=== PATIENT | female | born 1965 | race Hispanic/Latino ===

== ENCOUNTER 2024-10-28 16:27 | Inpatient (IN) | payer SELFPAY ==
--- NOTE | ~2024-10-28 | CT_ITS ---
CT abdomen pelvis w con Ordering provider: Candelario Doe MD History: 58 years Female with . RLQ pain . Comparison: None. Technique: CT abdomen and pelvis with IV and without oral contrast. Automated exposure control and it erative reconstruction technique were employed. The dose-length product was 403.50 mGy-cm. 100 mL Omn ipaque 350 was given IV. Findings: VISUALIZED LOWER CHEST: Dependent atelectatic changes. Slight cardiomegaly. UPPER ABDOMINAL ORGANS: Liver: Intrahepatic biliary dilatation. Slight dilatation of the CBD measuring 6.3 mm. Tiny cyst seen in the right lobe of the liver segment #5. Gallbladder: Status post cholecystectomy. Spleen: Normal. Stomach/duodenum: Normal. Pancreas: Normal. Slightly prominent pancreatic duct. Adrenals: Normal. Kidneys: Tiny cyst in the left kidney mid pole. PELVIC ORGANS: The bladder is underfilled. Uterus: Normal. BOWEL AND MESENTERY: Colon: No evidence of diverticulitis. Colon is loaded with fecal material. Normal appendix. Small Bowel: Normal. No obstruction. Peritoneum/mesentery: No free air or free fluid. No mesenteric lymphadenopathy. RETROPERITONEUM: Mild atheromatous disease of the abdominal aorta. No retroperitoneal lymphadenopat hy. MUSCULOSKELETAL: Superficial soft tissues: Small fat-containing umbilical hernia. Otherwise, The superficial soft tiss ues are normal. Bones: Age appropriate degenerative changes of the spine. bilateral sacroiliitis. IMPRESSION: 1. Intrahepatic biliary dilatation with a slightly prominent pancreatic duct. Evaluation of the sphi ncter of Oddi is advised. 2. Constipation. Reviewed, dictated and finalized at location A. IMPRESSION: 1. Intrahepatic biliary dilatation with a slightly prominent pancreatic duct. Evaluation of the sphincter of Oddi is advised. 2. Constipation.
--- NOTE | ~2024-10-28 | MR_ITS ---
EXAMINATION: MR MRCP wo/w con/w 3D wo ind DATE: 10/30/2024 08:55 INDICATION: Suspected sphincter of Perry dysfunction TECHNIQUE: Magnetic resonance imaging (MRI) of the abdomen was performed without and with 14 mL Multi kevin intravenous contrast. Sequences included coronal T2-weighted SS-FSE, coronal T2-weighted FS SS- FSE, coronal T2-weighted FS FIESTA, axial T2-weighted FS FIESTA, axial T2-weighted FIESTA, sagittal T 2-weighted SS-FSE, axial T1-weighted dual-echo FSPGR, axial T2-weighted SS-FSE, axial T1-weighted LAV A, axial T2-weighted STIR FSE. Thick-slab T2-weighted FRFSE-XL images were obtained for magnetic reso nance cholangiopancreatography (MRCP). Rotating maximum intensity projection 3-D reconstructions of t he volumetric data were created by the technologist. Postcontrast sequences included a time course of axial T1-weighted LAVA. COMPARISON: CT dated 10/28/2024 FINDINGS: ABDOMEN MRI: Heart size is normal. No pericardial or pleural effusion. Cholecystectomy clip at the gallbladder fos sa at the tip of the remaining cystic duct. There is mild central intrahepatic biliary ductal dilatio n. Spleen, pancreas, bilateral adrenal glands and right kidney are normal. 4 mm T2 hyperintense nonen hancing cyst at the mid left kidney. Bowels including the appendix are normal. No pathologically enla rged abdominal or upper pelvic lymphadenopathy. Mild lumbar and mid to lower thoracic spondylosis. ABDOMEN MRCP: The common hepatic duct is dilated to 12 mm tapering to a mildly dilated common bile duct measuring 8 mm in maximal diameter. There is a 7 mm low signal intensity stone at the distal common bile duct. T he main pancreatic duct is normal. IMPRESSION: 1. Choledocholithiasis with likely at least partially obstructing 8 mm stone in the distal common ricardo e duct with mild intra and extra hepatic biliary ductal dilation. Reviewed, dictated and finalized at location A. IMPRESSION: 1. Choledocholithiasis with likely at least partially obstructing 8 mm stone in the distal common bile duct with mild intra and extra hepatic biliary ductal d ilation.
--- NOTE | ~2024-10-28 | XR_ITS ---
INTRAOPERATIVE FLUOROSCOPY: CLINICAL HISTORY: 58 years old Female; GALLSTONES STENT PLACEMENT ONLY PROCEDURE COMMENTS: Limited intraoperative fluoroscopy of the abdomen was performed. CUMULATIVE DOSE: 24 mGy FLUOROSCOPY TIME: 113 seconds FINDINGS/IMPRESSION: Please refer to operative note for further details. Reviewed, dictated and finalized at location A.
--- NOTE | 2024-10-28 16:36 | ECG_ITS ---
Test Date: 2024-10-28 16:43:30 Measurements Intervals [place] Rate: 64 P: -9 RI: 150 QRS: 74 QRSD: 85 T: 39 QT: 402 QTc: 416 Interpretive Statements SINUS RHYTHM No previous ECG available for comparison Electronically Signed On 10-28-2024 20:50:27 CDT by Daniel Giron M.D.
[2024-10-28 16:38] VITALS: BP 119/91; PULSE 65; RESP 14; O2SAT 100
[2024-10-28 16:52] LABS: Basophils Percent Auto 0.4 % (0.2-1.2); Eosinophils Absolute Auto 0.1 K/mm3 (0-0.3); Eosinophils Percent Auto 1.6 % (0-4.4); Hematocrit 37.8 % (37.0-47.0); Hemoglobin 13.1 g/dL (12.0-15.0); Immature Granulocyte Absolute 0.03 K/mm3 (0.00-0.031); Immature Granulocyte Percent A 0.4 % (0-0.5); Lymphocytes Absolute Auto 1.79 K/mm3 (0.9-3.2); Lymphocytes Percent Auto 21.9 % (18.3-44.2); Mean Corpuscular HGB Conc 34.7 g/dl (32-36); Mean Corpuscular Hemoglobin 29.9 pg (26-34); Mean Corpuscular Volume 86.3 fl (80-100); Mean Platelet Volume 8.7 fl (7.4-10.4); Monocytes Absolute Auto 0.4 K/mm3 (0.1-0.6); Monocytes Percent Auto 5.4 % (2.6-8.5); Neutrophils Absolute Auto 5.8 K/mm3 (1.3-6.7); Neutrophils Percent Auto 70.3 % (45.5-73.1); Platelet Count Result 196 k/mm3 (150-375); Red Blood Count 4.38 M/mm3 (4.2-5.4); Red Cell Distribution Width 12.8 % (11.5-14.5); White Blood Count 8.2 K/mm3 (4.5-10.0)
[2024-10-28 17:01] LABS: Alanine Aminotransferase 56 U/L (6-35); Albumin Level 4.5 g/dL (3.5-5.1); Alkaline Phosphatase 116 U/L (38-126); Anion Gap 8 mmol/L (4-12); Aspartate Amino Transferase 129 U/L (14-36); Bilirubin,Total 1.3 mg/dL (0.2-1.3); Blood Urea Nitrogen 19 mg/dL (7-17); Calcium 9.2 mg/dL (8.4-10.2); Carbon Dioxide 26 mmol/L (22-30); Chloride 106 mmol/L (98-107); Estimated CRCL calculation 64 ml/min; Estimated Glomerular Filt Rate > 60; Glucose 131 mg/dL (65-110); Lipase 187 U/L (23-300); Potassium 3.5 mmol/L (3.4-5.0); Sodium 140 mmol/L (137-145)
[2024-10-28] MEDS: LACTATED RINGERS 1,000 ML 999 ML IV CONT (17:07)
[2024-10-28] MEDS: HYDROmorphone HCL INJ (*CRX) 2 MG/ML VIAL 0.5 MG IV PUSH (17:07)
[2024-10-28] MEDS: ONDANSETRON INJ 4 MG/2 ML VIAL IV PUSH ×2 (17:07→21:56)
--- NOTE | 2024-10-28 17:16 | ED_ITS ---
HPI - General Adult General Chief complaint: Abdominal Pain Stated complaint: abd pain Time Seen by Provider: 10/28/24 16:42 History of Present Illness HPI narrative: 58-year-old female presenting to the emergency department for evaluation for epigastric and right lower quadrant abdominal pain that has been ongoing for the approximately last hour. Patient does have associated nausea and vomiting. Patient does have prior history of cholecystectomy. Patient denies any prior history of kidney stones. Patient's family is present and a translation service was utilized since the patient is primarily Japanese-speaking. Related Data Allergies Allergy/AdvReac Type Severity Reaction Status Date / Time No Known Allergies Allergy Verified 10/28/24 16:31 Review of Systems 2 Review of Systems: All systems reviewed & are unremarkable except as noted in HPI and below Exam 2 Narrative: APPEARANCE: Uncomfortable appearing HEAD: normocephalic, atraumatic. EYES: PERRLA/EOMI, conjunctivae clear. NOSE: Normal no drainage EARS:TMS clear with good light reflex. THROAT: Pharynx clear, no exudate. NECK: Supple. No adenopathy, no masses. RESPIRATORY: Airway patent, respirations nonlabored. Clear to auscultation bilaterally, no rales, rhonchi, wheezing. CARDIOVASCULAR: Regular rate and rhythm without murmurs rubs or gallops. ABDOMINAL: Epigastric and right lower quadrant tenderness to palpation MUSCULOSKELETAL: Moves all extremities. Strength/ROM intact, No edema, No calf tenderness. NEURO: Alert. Cranial nerves II through XII intact. Good gait. Good coordination SKIN: Warm, dry. Normal Color Course Vital Signs Vital signs: Vital Signs Pulse Rate 65 10/28/24 16:38 Respiratory Rate 14 10/28/24 16:38 Blood Pressure 119/91 H 10/28/24 16:38 Pulse Oximetry 100 10/28/24 16:38 Pulse Rate 72 10/28/24 18:41 Respiratory Rate 12 10/28/24 18:41 Blood Pressure 125/62 10/28/24 18:41 Pulse Oximetry 100 10/28/24 18:41 Medical Decision Making [facility] Narrative Medical decision making narrative: 58-year-old female presenting to the emergency department for evaluation for upper abdominal pain after eating. Patient is afebrile with no leukocytosis and hemoglobin of 13.1. Patient's INR is 1.0. Patient has an AST of 129 ALT of 56 with no elevation of alk-phos or T bili, patient's lipase is 187. No significant abnormalities on the UA. CT scan does show some intrahepatic biliary dilation and recommended evaluation of the sphincter of OD. GI was consulted and patient will be admitted for an MRCP. If the MRCP is positive then patient will be taken for an ERCP. MRCP is negative the in is anticipated that the patient will be transferred for an ultrasound. Case was discussed with hospitalist patient was accepted for admission. Patient improvement of her pain with 0.5 mg of IV Dilaudid, 4 mg of Zofran and a L of lactated Ringer's. Differential Diagnosis Differential Diagnosis: Pancreatitis, obtain stone, sphincter of Oddi dysfunction, colitis, diverticulitis, appendicitis Vital Signs Vital Signs: Vital Signs Pulse Rate 65 10/28/24 16:38 Respiratory Rate 14 10/28/24 16:38 Blood Pressure 119/91 H 10/28/24 16:38 Pulse Oximetry 100 10/28/24 16:38 Pulse Rate 72 10/28/24 18:41 Respiratory Rate 12 10/28/24 18:41 Blood Pressure 125/62 10/28/24 18:41 Pulse Oximetry 100 10/28/24 18:41 Lab Data 10/28/24 16:47 10/28/24 16:47 Labs: Lab Results 10/28/24 10/28/24 10/28/24 Range/Units 16:36 16:47 16:47 WBC 8.2 Cancelled (4.5-10.0) K/mm3 RBC 4.38 (4.2-5.4) M/mm3 Hgb (12.0-15.0) g/dL Hct (37.0-47.0) % MCV (80-100) fl MCH (26-34) pg MCHC (32-36) g/dl RDW (11.5-14.5) % Plt Count (150-375) k/mm3 MPV (7.4-10.4) fl Immature Gran % (Auto) (0-0.5) % Neut % (Auto) (45.5-73.1) % Lymph % (Auto) (18.3-44.2) % Hardeman % (Auto) (2.6-8.5) % Eos % (Auto) (0-4.4) % Baso % (Auto) (0.2-1.2) % Lymph # (Auto) (0.9-3.2) K/mm3 Hardeman # (Auto) (0.1-0.6) K/mm3 Eos # (Auto) (0-0.3) K/mm3 Baso # (Auto) (0.0-0.1) K/mm3 Abs Immat Gran (auto) (0.00-0.031) K/mm3 Absolute Neuts (auto) (1.3-6.7) K/mm3 Absolute Nucleated RBC (0.0-0.012) K/mm3 Nucleated RBC % (0.0-0.2) % % Immature Plt Fraction PT (11.1-14.7) Seconds INR APTT (22.3-36.8) Seconds Sodium (137-145) mmol/L Potassium (3.4-5.0) mmol/L Chloride (98-107) mmol/L Carbon Dioxide (22-30) mmol/L Anion Gap (4-12) mmol/L BUN (7-17) mg/dL Creatinine (0.7-1.0) mg/dL Estim Creat Clear Calc ml/min Estimated GFR (59 - ) Glucose (65-110) mg/dL Lactic Acid (0.7-2.0) mmol/L Calcium (8.4-10.2) mg/dL Total Bilirubin (0.2-1.3) mg/dL AST (14-36) U/L ALT (6-35) U/L Alkaline Phosphatase (38-126) U/L Total Protein (6.3-8.2) g/dL Albumin (3.5-5.1) g/dL Lipase (23-300) U/L Urine Color (Yellow) Urine Appearance (Clear) Urine pH (5.0-9.0) Ur Specific [place] (1.001-1.035) Urine Protein (Negative) mg/dL Urine Glucose (UA) (Negative) mg/dL Urine Ketones (Negative) mg/dL Ur Blood (Man) (Negative) Urine Nitrate (Negative) Urine Bilirubin (Negative) Urine Urobilinogen (<2.0) mg/dL Add Ur Microanalysis Leukocyte Esterase Rfl (Negative) WATSON/UL Urine RBC (0-2) /hpf Urine WBC (0-3) /hpf Ur Squamous Epith Cells (Few) /hpf Urine Bacteria /hpf Urine Casts POC Urine HCG, Qual Negative (Negative) 10/28/24 10/28/24 10/28/24 Range/Units 16:47 16:47 16:47 WBC (4.5-10.0) K/mm3 RBC Cancelled (4.2-5.4) M/mm3 Hgb 13.1 Cancelled (12.0-15.0) g/dL Hct 37.8 Cancelled (37.0-47.0) % MCV 86.3 (80-100) fl MCH (26-34) pg MCHC (32-36) g/dl RDW (11.5-14.5) % Plt Count (150-375) k/mm3 MPV (7.4-10.4) fl Immature Gran % (Auto) (0-0.5) % Neut % (Auto) (45.5-73.1) % Lymph % (Auto) (18.3-44.2) % Hardeman % (Auto) (2.6-8.5) % Eos % (Auto) (0-4.4) % Baso % (Auto) (0.2-1.2) % Lymph # (Auto) (0.9-3.2) K/mm3 Hardeman # (Auto) (0.1-0.6) K/mm3 Eos # (Auto) (0-0.3) K/mm3 Baso # (Auto) (0.0-0.1) K/mm3 Abs Immat Gran (auto) (0.00-0.031) K/mm3 Absolute Neuts (auto) (1.3-6.7) K/mm3 Absolute Nucleated RBC (0.0-0.012) K/mm3 Nucleated RBC % (0.0-0.2) % % Immature Plt Fraction PT (11.1-14.7) Seconds INR APTT (22.3-36.8) Seconds Sodium (137-145) mmol/L Potassium (3.4-5.0) mmol/L Chloride (98-107) mmol/L Carbon Dioxide (22-30) mmol/L Anion Gap (4-12) mmol/L BUN (7-17) mg/dL Creatinine (0.7-1.0) mg/dL Estim Creat Clear Calc ml/min Estimated GFR (59 - ) Glucose (65-110) mg/dL Lactic Acid (0.7-2.0) mmol/L Calcium (8.4-10.2) mg/dL Total Bilirubin (0.2-1.3) mg/dL AST (14-36) U/L ALT (6-35) U/L Alkaline Phosphatase (38-126) U/L Total Protein (6.3-8.2) g/dL Albumin (3.5-5.1) g/dL Lipase (23-300) U/L Urine Color (Yellow) Urine Appearance (Clear) Urine pH (5.0-9.0) Ur Specific [place] (1.001-1.035) Urine Protein (Negative) mg/dL Urine Glucose (UA) (Negative) mg/dL Urine Ketones (Negative) mg/dL Ur Blood (Man) (Negative) Urine Nitrate (Negative) Urine Bilirubin (Negative) Urine Urobilinogen (<2.0) mg/dL Add Ur Microanalysis Leukocyte Esterase Rfl (Negative) WATSON/UL Urine RBC (0-2) /hpf Urine WBC (0-3) /hpf Ur Squamous Epith Cells (Few) /hpf Urine Bacteria /hpf Urine Casts POC Urine HCG, Qual (Negative) 10/28/24 10/28/24 10/28/24 Range/Units 16:47 16:47 16:47 WBC (4.5-10.0) K/mm3 RBC (4.2-5.4) M/mm3 Hgb (12.0-15.0) g/dL Hct (37.0-47.0) % MCV Cancelled (80-100) fl MCH 29.9 Cancelled (26-34) pg MCHC 34.7 Cancelled (32-36) g/dl RDW 12.8 (11.5-14.5) % Plt Count (150-375) k/mm3 MPV (7.4-10.4) fl Immature Gran % (Auto) (0-0.5) % Neut % (Auto) (45.5-73.1) % Lymph % (Auto) (18.3-44.2) % Hardeman % (Auto) (2.6-8.5) % Eos % (Auto) (0-4.4) % Baso % (Auto) (0.2-1.2) % Lymph # (Auto) (0.9-3.2) K/mm3 [place] # (Auto) (0.1-0.6) K/mm3 Eos # (Auto) (0-0.3) K/mm3 Baso # (Auto) (0.0-0.1) K/mm3 Abs Immat Gran (auto) (0.00-0.031) K/mm3 Absolute Neuts (auto) (1.3-6.7) K/mm3 Absolute Nucleated RBC (0.0-0.012) K/mm3 Nucleated RBC % (0.0-0.2) % % Immature Plt Fraction PT (11.1-14.7) Seconds INR APTT (22.3-36.8) Seconds Sodium (137-145) mmol/L Potassium (3.4-5.0) mmol/L Chloride (98-107) mmol/L Carbon Dioxide (22-30) mmol/L Anion Gap (4-12) mmol/L BUN (7-17) mg/dL Creatinine (0.7-1.0) mg/dL Estim Creat Clear Calc ml/min Estimated GFR (59 - ) Glucose (65-110) mg/dL Lactic Acid (0.7-2.0) mmol/L Calcium (8.4-10.2) mg/dL Total Bilirubin (0.2-1.3) mg/dL AST (14-36) U/L ALT (6-35) U/L Alkaline Phosphatase (38-126) U/L Total Protein (6.3-8.2) g/dL Albumin (3.5-5.1) g/dL Lipase (23-300) U/L Urine Color (Yellow) Urine Appearance (Clear) Urine pH (5.0-9.0) Ur Specific [place] (1.001-1.035) Urine Protein (Negative) mg/dL Urine Glucose (UA) (Negative) mg/dL Urine Ketones (Negative) mg/dL Ur Blood (Man) (Negative) Urine Nitrate (Negative) Urine Bilirubin (Negative) Urine Urobilinogen (<2.0) mg/dL Add Ur Microanalysis Leukocyte Esterase Rfl (Negative) WATSON/UL Urine RBC (0-2) /hpf Urine WBC (0-3) /hpf Ur Squamous Epith Cells (Few) /hpf Urine Bacteria /hpf Urine Casts POC Urine HCG, Qual (Negative) 10/28/24 10/28/24 10/28/24 Range/Units 16:47 16:47 16:47 WBC (4.5-10.0) K/mm3 RBC (4.2-5.4) M/mm3 Hgb (12.0-15.0) g/dL Hct (37.0-47.0) % MCV (80-100) fl MCH (26-34) pg MCHC (32-36) g/dl RDW Cancelled (11.5-14.5) % Plt Count 196 Cancelled (150-375) k/mm3 MPV 8.7 Cancelled (7.4-10.4) fl Immature Gran % (Auto) 0.4 (0-0.5) % Neut % (Auto) (45.5-73.1) % Lymph % (Auto) (18.3-44.2) % [place] % (Auto) (2.6-8.5) % Eos % (Auto) (0-4.4) % Baso % (Auto) (0.2-1.2) % Lymph # (Auto) (0.9-3.2) K/mm3 [place] # (Auto) (0.1-0.6) K/mm3 Eos # (Auto) (0-0.3) K/mm3 Baso # (Auto) (0.0-0.1) K/mm3 Abs Immat Gran (auto) (0.00-0.031) K/mm3 Absolute Neuts (auto) (1.3-6.7) K/mm3 Absolute Nucleated RBC (0.0-0.012) K/mm3 Nucleated RBC % (0.0-0.2) % % Immature Plt Fraction PT (11.1-14.7) Seconds INR APTT (22.3-36.8) Seconds Sodium (137-145) mmol/L Potassium (3.4-5.0) mmol/L Chloride (98-107) mmol/L Carbon Dioxide (22-30) mmol/L Anion Gap (4-12) mmol/L BUN (7-17) mg/dL Creatinine (0.7-1.0) mg/dL Estim Creat Clear Calc ml/min Estimated GFR (59 - ) Glucose (65-110) mg/dL Lactic Acid (0.7-2.0) mmol/L Calcium (8.4-10.2) mg/dL Total Bilirubin (0.2-1.3) mg/dL AST (14-36) U/L ALT (6-35) U/L Alkaline Phosphatase (38-126) U/L Total Protein (6.3-8.2) g/dL Albumin (3.5-5.1) g/dL Lipase (23-300) U/L Urine Color (Yellow) Urine Appearance (Clear) Urine pH (5.0-9.0) Ur Specific [place] (1.001-1.035) Urine Protein (Negative) mg/dL Urine Glucose (UA) (Negative) mg/dL Urine Ketones (Negative) mg/dL Ur Blood (Man) (Negative) Urine Nitrate (Negative) Urine Bilirubin (Negative) Urine Urobilinogen (<2.0) mg/dL Add Ur Microanalysis Leukocyte Esterase Rfl (Negative) WATSON/UL Urine RBC (0-2) /hpf Urine WBC (0-3) /hpf Ur Squamous Epith Cells (Few) /hpf Urine Bacteria /hpf Urine Casts POC Urine HCG, Qual (Negative) 10/28/24 10/28/24 10/28/24 Range/Units 16:47 16:47 16:47 WBC (4.5-10.0) K/mm3 RBC (4.2-5.4) M/mm3 Hgb (12.0-15.0) g/dL Hct (37.0-47.0) % MCV (80-100) fl MCH (26-34) pg MCHC (32-36) g/dl RDW (11.5-14.5) % Plt Count (150-375) k/mm3 MPV (7.4-10.4) fl Immature Gran % (Auto) Cancelled (0-0.5) % Neut % (Auto) 70.3 Cancelled (45.5-73.1) % Lymph % (Auto) 21.9 Cancelled (18.3-44.2) % [place] % (Auto) 5.4 (2.6-8.5) % Eos % (Auto) (0-4.4) % Baso % (Auto) (0.2-1.2) % Lymph # (Auto) (0.9-3.2) K/mm3 [place] # (Auto) (0.1-0.6) K/mm3 Eos # (Auto) (0-0.3) K/mm3 Baso # (Auto) (0.0-0.1) K/mm3 Abs Immat Gran (auto) (0.00-0.031) K/mm3 Absolute Neuts (auto) (1.3-6.7) K/mm3 Absolute Nucleated RBC (0.0-0.012) K/mm3 Nucleated RBC % (0.0-0.2) % % Immature Plt Fraction PT (11.1-14.7) Seconds INR APTT (22.3-36.8) Seconds Sodium (137-145) mmol/L Potassium (3.4-5.0) mmol/L Chloride (98-107) mmol/L Carbon Dioxide (22-30) mmol/L Anion Gap (4-12) mmol/L BUN (7-17) mg/dL Creatinine (0.7-1.0) mg/dL Estim Creat Clear Calc ml/min Estimated GFR (59 - ) Glucose (65-110) mg/dL Lactic Acid (0.7-2.0) mmol/L Calcium (8.4-10.2) mg/dL Total Bilirubin (0.2-1.3) mg/dL AST (14-36) U/L ALT (6-35) U/L Alkaline Phosphatase (38-126) U/L Total Protein (6.3-8.2) g/dL Albumin (3.5-5.1) g/dL Lipase (23-300) U/L Urine Color (Yellow) Urine Appearance (Clear) Urine pH (5.0-9.0) Ur Specific [place] (1.001-1.035) Urine Protein (Negative) mg/dL Urine Glucose (UA) (Negative) mg/dL Urine Ketones (Negative) mg/dL Ur Blood (Man) (Negative) Urine Nitrate (Negative) Urine Bilirubin (Negative) Urine Urobilinogen (<2.0) mg/dL Add Ur Microanalysis Leukocyte Esterase Rfl (Negative) WATSON/UL Urine RBC (0-2) /hpf Urine WBC (0-3) /hpf Ur Squamous Epith Cells (Few) /hpf Urine Bacteria /hpf Urine Casts POC Urine HCG, Qual (Negative) 10/28/24 10/28/24 10/28/24 Range/Units 16:47 16:47 16:47 WBC (4.5-10.0) K/mm3 RBC (4.2-5.4) M/mm3 Hgb (12.0-15.0) g/dL Hct (37.0-47.0) % MCV (80-100) fl MCH (26-34) pg MCHC (32-36) g/dl RDW (11.5-14.5) % Plt Count (150-375) k/mm3 MPV (7.4-10.4) fl Immature Gran % (Auto) (0-0.5) % Neut % (Auto) (45.5-73.1) % Lymph % (Auto) (18.3-44.2) % [place]eman % (Auto) Cancelled (2.6-8.5) % Eos % (Auto) 1.6 Cancelled (0-4.4) % Baso % (Auto) 0.4 Cancelled (0.2-1.2) % Lymph # (Auto) 1.79 (0.9-3.2) K/mm3 [place]eman # (Auto) (0.1-0.6) K/mm3 Eos # (Auto) (0-0.3) K/mm3 Baso # (Auto) (0.0-0.1) K/mm3 Abs Immat Gran (auto) (0.00-0.031) K/mm3 Absolute Neuts (auto) (1.3-6.7) K/mm3 Absolute Nucleated RBC (0.0-0.012) K/mm3 Nucleated RBC % (0.0-0.2) % % Immature Plt Fraction PT (11.1-14.7) Seconds INR APTT (22.3-36.8) Seconds Sodium (137-145) mmol/L Potassium (3.4-5.0) mmol/L Chloride (98-107) mmol/L Carbon Dioxide (22-30) mmol/L Anion Gap (4-12) mmol/L BUN (7-17) mg/dL Creatinine (0.7-1.0) mg/dL Estim Creat Clear Calc ml/min Estimated GFR (59 - ) Glucose (65-110) mg/dL Lactic Acid (0.7-2.0) mmol/L Calcium (8.4-10.2) mg/dL Total Bilirubin (0.2-1.3) mg/dL AST (14-36) U/L ALT (6-35) U/L Alkaline Phosphatase (38-126) U/L Total Protein (6.3-8.2) g/dL Albumin (3.5-5.1) g/dL Lipase (23-300) U/L Urine Color (Yellow) Urine Appearance (Clear) Urine pH (5.0-9.0) Ur Specific [place] (1.001-1.035) Urine Protein (Negative) mg/dL Urine Glucose (UA) (Negative) mg/dL Urine Ketones (Negative) mg/dL Ur Blood (Man) (Negative) Urine Nitrate (Negative) Urine Bilirubin (Negative) Urine Urobilinogen (<2.0) mg/dL Add Ur Microanalysis Leukocyte Esterase Rfl (Negative) WATSON/UL Urine RBC (0-2) /hpf Urine WBC (0-3) /hpf Ur Squamous Epith Cells (Few) /hpf Urine Bacteria /hpf Urine Casts POC Urine HCG, Qual (Negative) 10/28/24 10/28/24 10/28/24 Range/Units 16:47 16:47 16:47 WBC (4.5-10.0) K/mm3 RBC (4.2-5.4) M/mm3 Hgb (12.0-15.0) g/dL Hct (37.0-47.0) % MCV (80-100) fl MCH (26-34) pg MCHC (32-36) g/dl RDW (11.5-14.5) % Plt Count (150-375) k/mm3 MPV (7.4-10.4) fl Immature Gran % (Auto) (0-0.5) % Neut % (Auto) (45.5-73.1) % Lymph % (Auto) (18.3-44.2) % [place]eman % (Auto) (2.6-8.5) % Eos % (Auto) (0-4.4) % Baso % (Auto) (0.2-1.2) % Lymph # (Auto) Cancelled (0.9-3.2) K/mm3 [place]eman # (Auto) 0.4 Cancelled (0.1-0.6) K/mm3 Eos # (Auto) 0.1 Cancelled (0-0.3) K/mm3 Baso # (Auto) 0.0 (0.0-0.1) K/mm3 Abs Immat Gran (auto) (0.00-0.031) K/mm3 Absolute Neuts (auto) (1.3-6.7) K/mm3 Absolute Nucleated RBC (0.0-0.012) K/mm3 Nucleated RBC % (0.0-0.2) % % Immature Plt Fraction PT (11.1-14.7) Seconds INR APTT (22.3-36.8) Seconds Sodium (137-145) mmol/L Potassium (3.4-5.0) mmol/L Chloride (98-107) mmol/L Carbon Dioxide (22-30) mmol/L Anion Gap (4-12) mmol/L BUN (7-17) mg/dL Creatinine (0.7-1.0) mg/dL Estim Creat Clear Calc ml/min Estimated GFR (59 - ) Glucose (65-110) mg/dL Lactic Acid (0.7-2.0) mmol/L Calcium (8.4-10.2) mg/dL Total Bilirubin (0.2-1.3) mg/dL AST (14-36) U/L ALT (6-35) U/L Alkaline Phosphatase (38-126) U/L Total Protein (6.3-8.2) g/dL Albumin (3.5-5.1) g/dL Lipase (23-300) U/L Urine Color (Yellow) Urine Appearance (Clear) Urine pH (5.0-9.0) Ur Specific [place] (1.001-1.035) Urine Protein (Negative) mg/dL Urine Glucose (UA) (Negative) mg/dL Urine Ketones (Negative) mg/dL Ur Blood (Man) (Negative) Urine Nitrate (Negative) Urine Bilirubin (Negative) Urine Urobilinogen (<2.0) mg/dL Add Ur Microanalysis Leukocyte Esterase Rfl (Negative) WATSON/UL Urine RBC (0-2) /hpf Urine WBC (0-3) /hpf Ur Squamous Epith Cells (Few) /hpf Urine Bacteria /hpf Urine Casts POC Urine HCG, Qual (Negative) 10/28/24 10/28/24 10/28/24 Range/Units 16:47 16:47 16:47 WBC (4.5-10.0) K/mm3 RBC (4.2-5.4) M/mm3 Hgb (12.0-15.0) g/dL Hct (37.0-47.0) % MCV (80-100) fl MCH (26-34) pg MCHC (32-36) g/dl RDW (11.5-14.5) % Plt Count (150-375) k/mm3 MPV (7.4-10.4) fl Immature Gran % (Auto) (0-0.5) % Neut % (Auto) (45.5-73.1) % Lymph % (Auto) (18.3-44.2) % Hardeman % (Auto) (2.6-8.5) % Eos % (Auto) (0-4.4) % Baso % (Auto) (0.2-1.2) % Lymph # (Auto) (0.9-3.2) K/mm3 [place]eman # (Auto) (0.1-0.6) K/mm3 Eos # (Auto) (0-0.3) K/mm3 Baso # (Auto) Cancelled (0.0-0.1) K/mm3 Abs Immat Gran (auto) 0.03 Cancelled (0.00-0.031) K/mm3 Absolute Neuts (auto) 5.8 Cancelled (1.3-6.7) K/mm3 Absolute Nucleated RBC 0.000 (0.0-0.012) K/mm3 Nucleated RBC % (0.0-0.2) % % Immature Plt Fraction PT (11.1-14.7) Seconds INR APTT (22.3-36.8) Seconds Sodium (137-145) mmol/L Potassium (3.4-5.0) mmol/L Chloride (98-107) mmol/L Carbon Dioxide (22-30) mmol/L Anion Gap (4-12) mmol/L BUN (7-17) mg/dL Creatinine (0.7-1.0) mg/dL Estim Creat Clear Calc ml/min Estimated GFR (59 - ) Glucose (65-110) mg/dL Lactic Acid (0.7-2.0) mmol/L Calcium (8.4-10.2) mg/dL Total Bilirubin (0.2-1.3) mg/dL AST (14-36) U/L ALT (6-35) U/L Alkaline Phosphatase (38-126) U/L Total Protein (6.3-8.2) g/dL Albumin (3.5-5.1) g/dL Lipase (23-300) U/L Urine Color (Yellow) Urine Appearance (Clear) Urine pH (5.0-9.0) Ur Specific [place] (1.001-1.035) Urine Protein (Negative) mg/dL Urine Glucose (UA) (Negative) mg/dL Urine Ketones (Negative) mg/dL Ur Blood (Man) (Negative) Urine Nitrate (Negative) Urine Bilirubin (Negative) Urine Urobilinogen (<2.0) mg/dL Add Ur Microanalysis Leukocyte Esterase Rfl (Negative) WATSON/UL Urine RBC (0-2) /hpf Urine WBC (0-3) /hpf Ur Squamous Epith Cells (Few) /hpf Urine Bacteria /hpf Urine Casts POC Urine HCG, Qual (Negative) 10/28/24 10/28/24 10/28/24 Range/Units 16:47 16:47 17:02 WBC (4.5-10.0) K/mm3 RBC (4.2-5.4) M/mm3 Hgb (12.0-15.0) g/dL Hct (37.0-47.0) % MCV (80-100) fl MCH (26-34) pg MCHC (32-36) g/dl RDW (11.5-14.5) % Plt Count (150-375) k/mm3 MPV (7.4-10.4) fl Immature Gran % (Auto) (0-0.5) % Neut % (Auto) (45.5-73.1) % Lymph % (Auto) (18.3-44.2) % Hardeman % (Auto) (2.6-8.5) % Eos % (Auto) (0-4.4) % Baso % (Auto) (0.2-1.2) % Lymph # (Auto) (0.9-3.2) K/mm3 [place]eman # (Auto) (0.1-0.6) K/mm3 Eos # (Auto) (0-0.3) K/mm3 Baso # (Auto) (0.0-0.1) K/mm3 Abs Immat Gran (auto) (0.00-0.031) K/mm3 Absolute Neuts (auto) (1.3-6.7) K/mm3 Absolute Nucleated RBC Cancelled (0.0-0.012) K/mm3 Nucleated RBC % 0.0 Cancelled (0.0-0.2) % % Immature Plt Fraction Cancelled PT 13.6 (11.1-14.7) Seconds INR 1.0 APTT 28.1 (22.3-36.8) Seconds Sodium 140 (137-145) mmol/L Potassium 3.5 (3.4-5.0) mmol/L Chloride 106 (98-107) mmol/L Carbon Dioxide 26 (22-30) mmol/L Anion Gap 8 (4-12) mmol/L BUN 19 H (7-17) mg/dL Creatinine 0.72 (0.7-1.0) mg/dL Estim Creat Clear Calc 64 ml/min Estimated GFR > 60 (59 - ) Glucose 131 H (65-110) mg/dL Lactic Acid (0.7-2.0) mmol/L Calcium 9.2 (8.4-10.2) mg/dL Total Bilirubin 1.3 (0.2-1.3) mg/dL AST 129 H (14-36) U/L ALT 56 H (6-35) U/L Alkaline Phosphatase 116 (38-126) U/L Total Protein 8.0 (6.3-8.2) g/dL Albumin 4.5 (3.5-5.1) g/dL Lipase 187 (23-300) U/L Urine Color Yellow (Yellow) Urine Appearance Cloudy H (Clear) Urine pH 7.5 (5.0-9.0) Ur Specific [place] 1.019 (1.001-1.035) Urine Protein Trace (Negative) mg/dL Urine Glucose (UA) Negative (Negative) mg/dL Urine Ketones Negative (Negative) mg/dL Ur Blood (Man) Negative (Negative) Urine Nitrate Negative (Negative) Urine Bilirubin Negative (Negative) Urine Urobilinogen 2.0 H (<2.0) mg/dL Add Ur Microanalysis Reviewed Leukocyte Esterase Rfl 2+ H (Negative) WATSON/UL Urine RBC 0-2 (0-2) /hpf Urine WBC 0-5 (0-3) /hpf Ur Squamous Epith Cells Occasional (Few) /hpf Urine Bacteria None seen /hpf Urine Casts 0-2 POC Urine HCG, Qual (Negative) 10/28/ Range/Units 18:38 WBC (4.5-10.0) K/mm3 RBC (4.2-5.4) M/mm3 Hgb (12.0-15.0) g/dL Hct (37.0-47.0) % MCV (80-100) fl MCH (26-34) pg MCHC (32-36) g/dl RDW (11.5-14.5) % Plt Count (150-375) k/mm3 MPV (7.4-10.4) fl Immature Gran % (Auto) (0-0.5) % Neut % (Auto) (45.5-73.1) % Lymph % (Auto) (18.3-44.2) % Hardeman % (Auto) (2.6-8.5) % Eos % (Auto) (0-4.4) % Baso % (Auto) (0.2-1.2) % Lymph # (Auto) (0.9-3.2) K/mm3 Hardeman # (Auto) (0.1-0.6) K/mm3 Eos # (Auto) (0-0.3) K/mm3 Baso # (Auto) (0.0-0.1) K/mm3 Abs Immat Gran (auto) (0.00-0.031) K/mm3 Absolute Neuts (auto) (1.3-6.7) K/mm3 Absolute Nucleated RBC (0.0-0.012) K/mm3 Nucleated RBC % (0.0-0.2) % % Immature Plt Fraction PT (11.1-14.7) Seconds INR APTT (22.3-36.8) Seconds Sodium (137-145) mmol/L Potassium (3.4-5.0) mmol/L Chloride (98-107) mmol/L Carbon Dioxide (22-30) mmol/L Anion Gap (4-12) mmol/L BUN (7-17) mg/dL Creatinine (0.7-1.0) mg/dL Estim Creat Clear Calc ml/min Estimated GFR (59 - ) Glucose (65-110) mg/dL Lactic Acid 0.8 (0.7-2.0) mmol/L Calcium (8.4-10.2) mg/dL Total Bilirubin (0.2-1.3) mg/dL AST (14-36) U/L ALT (6-35) U/L Alkaline Phosphatase (38-126) U/L Total Protein (6.3-8.2) g/dL Albumin (3.5-5.1) g/dL Lipase (23-300) U/L Urine Color (Yellow) Urine Appearance (Clear) Urine pH (5.0-9.0) Ur Specific [place] (1.001-1.035) Urine Protein (Negative) mg/dL Urine Glucose (UA) (Negative) mg/dL Urine Ketones (Negative) mg/dL Ur Blood (Man) (Negative) Urine Nitrate (Negative) Urine Bilirubin (Negative) Urine Urobilinogen (<2.0) mg/dL Add Ur Microanalysis Leukocyte Esterase Rfl (Negative) WATSON/UL Urine RBC (0-2) /hpf Urine WBC (0-3) /hpf Ur Squamous Epith Cells (Few) /hpf Urine Bacteria /hpf Urine Casts POC Urine HCG, Qual (Negative) Discharge Plan Discharge Clinical Impression: Abdominal pain Patient Disposition: Still a Patient Condition: Stable Instructions: Antibiotic Form Patient Language: Armenian Follow-up/Referrals: PHYSICIAN,BENZENE [employer]ILL [employer] OPERATOR [Primary Care Provider] -
[2024-10-28 17:21] LABS: Add Urine Microscopic? YES; Appearance Urine Cloudy (Clear); Bacteria Urine None Seen /hpf; Bilirubin Urine Negative (Negative); Blood Urine Negative (Negative); Color Urine Yellow (Yellow); Glucose Urine UA Negative (Negative); Ketones Urine Negative (Negative); Leukocyte Esterase Ur 2+ LEU/UL (Negative); Need Manual Microscopic Reviewed; Nitrate Urine Negative (Negative); Non Pathogenic Casts 0-2; Protein Urine Trace mg/dL (Negative); RBC Urine 0-2 /hpf (0-2); Specific Grav Ur 1.019 (1.001-1.035); Squamous Epithelial Cell Urine Occasional /hpf (Few); WBC Urine 0-5 /hpf (0-3); pH Urine 7.5 (5.0-9.0)
[2024-10-28 17:21] LABS: Partial Thromboplastin Time 28.1 Seconds (22.3-36.8); Prothrombin Time 13.6 Seconds (11.1-14.7)
[2024-10-28 18:18] LABS: BEDSIDEPREGUCG Negative (Negative)
[2024-10-28 18:41] VITALS: BP 125/62; PULSE 72; RESP 12; O2SAT 100
[2024-10-28 18:56] LABS: Lactic Acid Reflex 0.8 mmol/L (0.7-2.0)
[2024-10-28] MEDS: LACTATED RINGERS 1,000 ML 125 ML IV CONT (19:12)
--- NOTE | 2024-10-28 19:35 | P.HP_ITS ---
H&P: HPI History of Present Illness Date/Time: 10/28/24 21:35 Chief Complaint: Abdominal pain. Narrative: This is a 58-year-old female with history of cholecystectomy who presented to the emergency department via private vehicle from home with complaints of abdominal pain. She is primarily [place]-speaking and a video translation service was used to obtain the following history. She felt fine when she got up this morning. For lunch she had pasta salad and macaroni and cheese and not long thereafter she developed nonradiating sharp pain in the epigastric region associated with nausea and vomiting x2. The symptoms were similar to though she experienced before she had her gallbladder taken out. With further questioning she reports that over the last 1 week she has had similar symptoms albeit to a lesser degree and she has been taking [id number] medication though she is unable to tell me the name of that medication. She denies fever, chills, sweats, hematemesis, bloating, belching, diarrhea, melena, hematochezia, provide S, and jaundice. In the ED: Vital signs were stable on arrival. Labs were significant for a WBC count of 8.2, total bilirubin 0.3, AST 129, ALT 56, alkaline phosphatase 116, lipase 187. CT of the abdomen and pelvis showed intrahepatic biliary dilatation with a slightly prominent peripancreatic duct and findings of constipation. She received a L of lactated Ringer's, hydromorphone 0.5 mg, and ondansetron 4 mg. She is being admitted in this setting for symptom management and GI consultation. Review of Systems Review of Systems: 12 systems were reviewed and are negativ e except for as per HPI. [facility] Surgical History Surgical History (Updated 10/28/24 @ 22:22 by Andreina Bonner PA-C) History of cholecystectomy Social History Social History (Updated 10/28/24 @ 22:23 by Andreina Bonner PA-C) Social History: Surrogate medical decision maker: Lior Miller, spouse. Code status: Full code. Smoking status: Never smoker Alcohol intake: never Meds Home Medications and Allergies Allergies Allergy/AdvReac Type Severity Reaction Status Date / Time No Known Allergies Allergy Verified 10/28/24 16:31 Vital Signs Vital Signs - 24 hr 10/28/24 16:38 10/28/24 18:41 Pulse Rate 65 72 Respiratory Rate 14 12 Blood Pressure 119/91 H 125/62 Pulse Oximetry 100 100 Exam Narrative: General: Nontoxic-appearing female supine in bed in no acute distress. Weight: 72 kg. BMI: 31.0. HEENT: PERRL, EOMI. Sclera anicteric. Oral mucosa moist. Neck: Supple. Respiratory: Lungs are clear to auscultation bilaterally. Cardiovascular: Regular rate and rhythm with S1-S2. Gastrointestinal: Abdomen is soft, nontender, and nondistended with positive bowel sounds. (she did receive pain medications not long prior to my examination) Skin: Warm and dry. No rash or lesions on limited exam. Extremities: No cyanosis, clubbing, or edema. Radial and pedal pulses intact. Neurological: Alert. Cranial nerves 2-12 are grossly intact. No gross focal deficits to casual conversation. Psychiatric: Pleasant and cooperative with normal mood and affect. Judgment and insight intact. H&P: Results Labs Labs: Short CBC 10/28/24 10/28/24 10/28/24 Range/Units 16:47 16:47 16:47 WBC 8.2 Cancelled (4.5-10.0) K/mm3 Hgb 13.1 Cancelled (12.0-15.0) g/dL Hct 37.8 (37.0-47.0) % Plt Count (150-375) k/mm3 10/28/24 10/28/24 Range/Units 16:47 16:47 WBC (4.5-10.0) K/mm3 Hgb (12.0-15.0) g/dL Hct Cancelled (37.0-47.0) % Plt Count 196 Cancelled (150-375) k/mm3 BMP 10/28/24 16:47 Sodium 140 Potassium 3.5 Chloride 106 Carbon Dioxide 26 BUN 19 H Creatinine 0.72 Glucose 131 H Calcium 9.2 Liver Function 10/28/24 Range/Units 16:47 Total Bilirubin 1.3 (0.2-1.3) mg/dL AST 129 H (14-36) U/L ALT 56 H (6-35) U/L Alkaline Phosphatase 116 (38-126) U/L Albumin 4.5 (3.5-5.1) g/dL Urine 10/28/24 Range/Units 17:02 Urine Color Yellow (Yellow) Urine Appearance Cloudy H (Clear) Urine pH 7.5 (5.0-9.0) Ur Specific Thurmond 1.019 (1.001-1.035) Urine Protein Trace (Negative) mg/dL Urine Glucose (UA) Negative (Negative) mg/dL Imaging Abdomen/Pelvis CT 10/28/24 18:07 IMPRESSION: 1. Intrahepatic biliary dilatation with a slightly prominent pancreatic duct. Evaluation of the sphincter of Oddi is advised. 2. Constipation. Assessment and Plan Assessment and plan (1) Intrahepatic bile duct dilation: Code(s): K83.8 - Other specified diseases of biliary tract Status: Acute (2) Pancreatic duct dilated: Code(s): K86.89 - Other specified diseases of pancreas Status: Acute (3) Epigastric pain: Code(s): R10.13 - Epigastric pain Status: Acute (4) Transaminitis: Code(s): R74.01 - Elevation of levels of liver transaminase levels Status: Acute Plan The patient presented to the emergency department for evaluation of upper abdominal pain, nausea, and vomiting which started approximately 1 hour prior to arrival as detailed in HPI. CT showed intrahepatic biliary dilatation and a slightly prominent peripancreatic duct and MRCP has been ordered for further evaluation. Total bilirubin and alkaline phosphatase are within normal limits though AST and ALT are a bit elevated. GI has been consulted for further recommendations. Vital signs were reviewed and they are stable. Findings and treatment plan were discussed with the patient. Questions were solicited and an swered to satisfaction. The patient's medical management will be taken over by the hospitalist team in a.m. Quality VTE Prophylaxis VTE prophylaxis: mechanical ordered If No VTE Prophylaxis Answer both mechanical and pharmacologic: Reason no pharmacologic proph: medical contraindication (hold for now as she may require procedure) The patient has been admitted under observation status. Hospitalist [facility] Advance Care Plan I have confirmed that the patient's Advanced Care Plan is present, code status is documented, or surrogate decision maker is listed in patient medical record.: Yes Medication Reconciliation I have utilized all available resources to obtain, update and review the patients current medications (includes all prescriptions, OTC, herbals, cannabis, and nutritional supplements).: Yes
[2024-10-28] MEDS: LACTATED RINGERS 1,000 ML 75 ML IV CONT (21:57)
[2024-10-29 05:29] VITALS: BP 112/56; PULSE 54; RESP 18; TEMP 36.6; O2SAT 98
[2024-10-29 06:07] LABS: Basophils Percent Auto 0.2 % (0.2-1.2); Eosinophils Absolute Auto 0.1 K/mm3 (0-0.3); Eosinophils Percent Auto 2.8 % (0-4.4); Hematocrit 34.3 % (37.0-47.0); Hemoglobin 11.6 g/dL (12.0-15.0); Lymphocytes Absolute Auto 1.19 K/mm3 (0.9-3.2); Lymphocytes Percent Auto 28.2 % (18.3-44.2); Mean Corpuscular HGB Conc 33.8 g/dl (32-36); Mean Corpuscular Volume 88.6 fl (80-100); Mean Platelet Volume 9.3 fl (7.4-10.4); Monocytes Absolute Auto 0.4 K/mm3 (0.1-0.6); Monocytes Percent Auto 8.8 % (2.6-8.5); Neutrophils Absolute Auto 2.5 K/mm3 (1.3-6.7); Platelet Count Result 152 k/mm3 (150-375); Red Blood Count 3.87 M/mm3 (4.2-5.4); White Blood Count 4.2 K/mm3 (4.5-10.0)
[2024-10-29 06:20] LABS: Alanine Aminotransferase 208 U/L (6-35); Albumin Level 3.7 g/dL (3.5-5.1); Alkaline Phosphatase 127 U/L (38-126); Anion Gap 2 mmol/L (4-12); Aspartate Amino Transferase 234 U/L (14-36); Bilirubin,Total 0.8 mg/dL (0.2-1.3); Blood Urea Nitrogen 9 mg/dL (7-17); Calcium 8.6 mg/dL (8.4-10.2); Carbon Dioxide 31 mmol/L (22-30); Chloride 108 mmol/L (98-107); Estimated CRCL calculation 66 ml/min; Estimated Glomerular Filt Rate > 60; Glucose 93 mg/dL (65-110); Magnesium 2.1 mg/dL (1.6-2.3); Potassium 3.9 mmol/L (3.4-5.0); Sodium 141 mmol/L (137-145)
--- NOTE | 2024-10-29 08:14 | P.PNIM_ITS ---
Progress Note: A&P Assessment and Plan (1) Intrahepatic bile duct dilation: Code(s): K83.8 - Other specified diseases of biliary tract Status: Acute Assessment and Plan: Hx Cholecystectomy Possibly multifactorial-retained stone versus narrowing of CBD/Sphincter of Oddi versus sludge MRCP Pending CT Abdomen/Pelvis:1. Intrahepatic biliary dilatation with a slightly prominent pancreatic duct. Evaluation of the sphincter of Oddi is advised. 2. Constipation. AST 234, ALT 208, alkaline phosphatase 127, lipase 187, total bili 0.8 Supportive care with pain control Antiemetics as needed NPO GI consulted and appreciate recommendations (2) Pancreatic duct dilated: Code(s): K86.89 - Other specified diseases of pancreas Status: Acute Assessment and Plan: As above (3) Epigastric pain: Code(s): R10.13 - Epigastric pain Status: Acute Assessment and Plan: As above (4) Transaminitis: Code(s): R74.01 - Elevation of levels of liver transaminase levels Status: Acute Assessment and Plan: As above Subjective Date/time seen: 10/29/24 08:14 Interval history: Patient is admitted in the setting of abdominal pain. Patient has a past medical history of cholecystectomy. CT scan shows intrahepatic bilaterally dil ation and slight prominent peripancreatic duct. MRCP is pending. Total bilirubin and alkaline phosphatase are within normal limits. AST and ALT elevated. Review of Systems Review of Systems: 12 systems were reviewed and are negativ e except for as per HPI. Exam Narrative: General: Nontoxic-appearing female supine in bed in no acute distress. Weight: 72 kg. BMI: 31.0. HEENT: PERRL, EOMI. Sclera anicteric. Oral mucosa moist. Neck: Supple. Respiratory: Lungs are clear to auscultation bilaterally. Cardiovascular: Regular rate and rhythm with S1-S2. Gastrointestinal: Abdomen is soft, nontender, and nondistended with positive bowel sounds. (she did receive pain medications not long prior to my examination) Skin: Warm and dry. No rash or lesions on limited exam. Extremities: No cyanosis, clubbing, or edema. Radial and pedal pulses intact. Neurological: Alert. Cranial nerves 2-12 are grossly intact. No gross focal deficits to casual conversation. Psychiatric: Pleasant and cooperative with normal mood and affect. Judgment and insight intact. Objective Data Vital Signs Vital Signs: Vital Signs - 24 hr 10/28/24 16:38 10/28/24 18:41 10/28/24 22:34 Temperature Pulse Rate 65 72 Respiratory Rate 14 12 Blood Pressure 119/91 H 125/62 Pulse Oximetry 100 100 Oxygen Delivery Room Air 10/29/24 05:29 Temperature 97.8 F Pulse Rate 54 L Respiratory Rate 18 Blood Pressure 112/56 L Pulse Oximetry 98 Oxygen Delivery Intake/Output Intake/Output: Intake & Output 10/26/24 10/27/24 10/28/24 10/29/24 23:59 23:59 23:59 23:59 Intake Total 1343.8 Balance 1343.8 Meds/Results Medications: Active Medications Generic Name Dose Route Start Last Admin Trade Name Freq PRN Reason Stop Dose Admin Hydromorphone HCl 0.5 mg 10/28/24 19:41 Hydromorphone Hcl Inj (*Crx) 2 Mg/Ml Vial IV PUSH Q3H PRN Pain Rated 7-10 Lactated Ringer's 1,000 mls @ 75 mls/hr 10/28/24 18:55 10/28/24 21:57 Lr - Lactated Ringers Iv IV CONT 75 mls/hr .[id number] RUCHI Administration Ondansetron HCl 4 mg 10/28/24 18:52 10/28/24 21:56 Ondansetron Inj 4 Mg/2 Ml Vial IV PUSH 4 mg Q4H PRN Administration Nausea Radiology Results: ITS Impressions Abdomen/Pelvis CT 10/28/24 18:07 IMPRESSION: 1. Intrahepatic biliary dilatation with a slightly prominent pancreatic duct. Evaluation of the sphincter of Oddi is advised. 2. Constipation. Labs Labs: Laboratory Results - last 24 hr 10/28/24 10/28/24 10/28/24 16:36 16:47 16:47 WBC 8.2 Cancelled RBC 4.38 Hgb Hct MCV MCH MCHC RDW Plt Count MPV Immature Gran % (Auto) Neut % (Auto) Lymph % (Auto) Tate % (Auto) Eos % (Auto) Baso % (Auto) Lymph # (Auto) Tate # (Auto) Eos # (Auto) Baso # (Auto) Abs Immat Gran (auto) Absolute Neuts (auto) Absolute Nucleated RBC Nucleated RBC % % Immature Plt Fraction PT INR APTT Sodium Potassium Chloride Carbon Dioxide Anion Gap BUN Creatinine Estim Creat Clear Calc Estimated GFR Glucose Lactic Acid Calcium Magnesium Total Bilirubin AST ALT Alkaline Phosphatase Total Protein Albumin Lipase Urine Color Urine Appearance Urine pH Ur Specific [place] Urine Protein Urine Glucose (UA) Urine Ketones Ur Blood (Man) Urine Nitrate Urine Bilirubin Urine Urobilinogen Add Ur Microanalysis Leukocyte Esterase Rfl Urine RBC Urine WBC Ur Squamous Epith Cells Urine Bacteria Urine Casts POC Urine HCG, Qual Negative 10/28/24 10/28/24 10/28/24 16:47 16:47 16:47 WBC RBC Cancelled Hgb 13.1 Cancelled Hct 37.8 Cancelled MCV 86.3 MCH MCHC RDW Plt Count MPV Immature Gran % (Auto) Neut % (Auto) Lymph % (Auto) Tate % (Auto) Eos % (Auto) Baso % (Auto) Lymph # (Auto) [place] # (Auto) Eos # (Auto) Baso # (Auto) Abs Immat Gran (auto) Absolute Neuts (auto) Absolute Nucleated RBC Nucleated RBC % % Immature Plt Fraction PT INR APTT Sodium Potassium Chloride Carbon Dioxide Anion Gap BUN Creatinine Estim Creat Clear Calc Estimated GFR Glucose Lactic Acid Calcium Magnesium Total Bilirubin AST ALT Alkaline Phosphatase Total Protein Albumin Lipase Urine Color Urine Appearance Urine pH Ur Specific [place] Urine Protein Urine Glucose (UA) Urine Ketones Ur Blood (Man) Urine Nitrate Urine Bilirubin Urine Urobilinogen Add Ur Microanalysis Leukocyte Esterase Rfl Urine RBC Urine WBC Ur Squamous Epith Cells Urine Bacteria Urine Casts POC Urine HCG, Qual 10/28/24 10/28/24 10/28/24 16:47 16:47 16:47 WBC RBC Hgb Hct MCV Cancelled MCH 29.9 Cancelled MCHC 34.7 Cancelled RDW 12.8 Plt Count MPV Immature Gran % (Auto) Neut % (Auto) Lymph % (Auto) Tate % (Auto) Eos % (Auto) Baso % (Auto) Lymph # (Auto) Tate # (Auto) Eos # (Auto) Baso # (Auto) Abs Immat Gran (auto) Absolute Neuts (auto) Absolute Nucleated RBC Nucleated RBC % % Immature Plt Fraction PT INR APTT Sodium Potassium Chloride Carbon Dioxide Anion Gap BUN Creatinine Estim Creat Clear Calc Estimated GFR Glucose Lactic Acid Calcium Magnesium Total Bilirubin AST ALT Alkaline Phosphatase Total Protein Albumin Lipase Urine Color Urine Appearance Urine pH Ur Specific [place] Urine Protein Urine Glucose (UA) Urine Ketones Ur Blood (Man) Urine Nitrate Urine Bilirubin Urine Urobilinogen Add Ur Microanalysis Leukocyte Esterase Rfl Urine RBC Urine WBC Ur Squamous Epith Cells Urine Bacteria Urine Casts POC Urine HCG, Qual 10/28/24 10/28/24 10/28/24 16:47 16:47 16:47 WBC RBC Hgb Hct MCV MCH MCHC RDW Cancelled Plt Count 196 Cancelled MPV 8.7 Cancelled Immature Gran % (Auto) 0.4 Neut % (Auto) Lymph % (Auto) Tate % (Auto) Eos % (Auto) Baso % (Auto) Lymph # (Auto) Tate # (Auto) Eos # (Auto) Baso # (Auto) Abs Immat Gran (auto) Absolute Neuts (auto) Absolute Nucleated RBC Nucleated RBC % % Immature Plt Fraction PT INR APTT Sodium Potassium Chloride Carbon Dioxide Anion Gap BUN Creatinine Estim Creat Clear Calc Estimated GFR Glucose Lactic Acid Calcium Magnesium Total Bilirubin AST ALT Alkaline Phosphatase Total Protein Albumin Lipase Urine Color Urine Appearance Urine pH Ur Specific [place] Urine Protein Urine Glucose (UA) Urine Ketones Ur Blood (Man) Urine Nitrate Urine Bilirubin Urine Urobilinogen Add Ur Microanalysis Leukocyte Esterase Rfl Urine RBC Urine WBC Ur Squamous Epith Cells Urine Bacteria Urine Casts POC Urine HCG, Qual 10/28/24 10/28/24 10/28/24 16:47 16:47 16:47 WBC RBC Hgb Hct MCV MCH MCHC RDW Plt Count MPV Immature Gran % (Auto) Cancelled Neut % (Auto) 70.3 Cancelled Lymph % (Auto) 21.9 Cancelled Tate % (Auto) 5.4 Eos % (Auto) Baso % (Auto) Lymph # (Auto) Tate # (Auto) Eos # (Auto) Baso # (Auto) Abs Immat Gran (auto) Absolute Neuts (auto) Absolute Nucleated RBC Nucleated RBC % % Immature Plt Fraction PT INR APTT Sodium Potassium Chloride Carbon Dioxide Anion Gap BUN Creatinine Estim Creat Clear Calc Estimated GFR Glucose Lactic Acid Calcium Magnesium Total Bilirubin AST ALT Alkaline Phosphatase Total Protein Albumin Lipase Urine Color Urine Appearance Urine pH Ur Specific [place] Urine Protein Urine Glucose (UA) Urine Ketones Ur Blood (Man) Urine Nitrate Urine Bilirubin Urine Urobilinogen Add Ur Microanalysis Leukocyte Esterase Rfl Urine RBC Urine WBC Ur Squamous Epith Cells Urine Bacteria Urine Casts POC Urine HCG, Qual 10/28/24 10/28/24 10/28/24 16:47 16:47 16:47 WBC RBC Hgb Hct MCV MCH MCHC RDW Plt Count MPV Immature Gran % (Auto) Neut % (Auto) Lymph % (Auto) Tate % (Auto) Cancelled Eos % (Auto) 1.6 Cancelled Baso % (Auto) 0.4 Cancelled Lymph # (Auto) 1.79 Tate # (Auto) Eos # (Auto) Baso # (Auto) Abs Immat Gran (auto) Absolute Neuts (auto) Absolute Nucleated RBC Nucleated RBC % % Immature Plt Fraction PT INR APTT Sodium Potassium Chloride Carbon Dioxide Anion Gap BUN Creatinine Estim Creat Clear Calc Estimated GFR Glucose Lactic Acid Calcium Magnesium Total Bilirubin AST ALT Alkaline Phosphatase Total Protein Albumin Lipase Urine Color Urine Appearance Urine pH Ur Specific [place] Urine Protein Urine Glucose (UA) Urine Ketones Ur Blood (Man) Urine Nitrate Urine Bilirubin Urine Urobilinogen Add Ur Microanalysis Leukocyte Esterase Rfl Urine RBC Urine WBC Ur Squamous Epith Cells Urine Bacteria Urine Casts POC Urine HCG, Qual 10/28/24 10/28/24 10/28/24 16:47 16:47 16:47 WBC RBC Hgb Hct MCV MCH MCHC RDW Plt Count MPV Immature Gran % (Auto) Neut % (Auto) Lymph % (Auto) Tate % (Auto) Eos % (Auto) Baso % (Auto) Lymph # (Auto) Cancelled Tate # (Auto) 0.4 Cancelled Eos # (Auto) 0.1 Cancelled Baso # (Auto) 0.0 Abs Immat Gran (auto) Absolute Neuts (auto) Absolute Nucleated RBC Nucleated RBC % % Immature Plt Fraction PT INR APTT Sodium Potassium Chloride Carbon Dioxide Anion Gap BUN Creatinine Estim Creat Clear Calc Estimated GFR Glucose Lactic Acid Calcium Magnesium Total Bilirubin AST ALT Alkaline Phosphatase Total Protein Albumin Lipase Urine Color Urine Appearance Urine pH Ur Specific [place] Urine Protein Urine Glucose (UA) Urine Ketones Ur Blood (Man) Urine Nitrate Urine Bilirubin Urine Urobilinogen Add Ur Microanalysis Leukocyte Esterase Rfl Urine RBC Urine WBC Ur Squamous Epith Cells Urine Bacteria Urine Casts POC Urine HCG, Qual 10/28/24 10/28/24 10/28/24 16:47 16:47 16:47 WBC RBC Hgb Hct MCV MCH MCHC RDW Plt Count MPV Immature Gran % (Auto) Neut % (Auto) Lymph % (Auto) Tate % (Auto) Eos % (Auto) Baso % (Auto) Lymph # (Auto) Tate # (Auto) Eos # (Auto) Baso # (Auto) Cancelled Abs Immat Gran (auto) 0.03 Cancelled Absolute Neuts (auto) 5.8 Cancelled Absolute Nucleated RBC 0.000 Nucleated RBC % % Immature Plt Fraction PT INR APTT Sodium Potassium Chloride Carbon Dioxide Anion Gap BUN Creatinine Estim Creat Clear Calc Estimated GFR Glucose Lactic Acid Calcium Magnesium Total Bilirubin AST ALT Alkaline Phosphatase Total Protein Albumin Lipase Urine Color Urine Appearance Urine pH Ur Specific [place] Urine Protein Urine Glucose (UA) Urine Ketones Ur Blood (Man) Urine Nitrate Urine Bilirubin Urine Urobilinogen Add Ur Microanalysis Leukocyte Esterase Rfl Urine RBC Urine WBC Ur Squamous Epith Cells Urine Bacteria Urine Casts POC Urine HCG, Qual 10/28/24 10/28/24 10/28/24 16:47 16:47 17:02 WBC RBC Hgb Hct MCV MCH MCHC RDW Plt Count MPV Immature Gran % (Auto) Neut % (Auto) Lymph % (Auto) Tate % (Auto) Eos % (Auto) Baso % (Auto) Lymph # (Auto) Tate # (Auto) Eos # (Auto) Baso # (Auto) Abs Immat Gran (auto) Absolute Neuts (auto) Absolute Nucleated RBC Cancelled Nucleated RBC % 0.0 Cancelled % Immature Plt Fraction Cancelled PT 13.6 INR 1.0 APTT 28.1 Sodium 140 Potassium 3.5 Chloride 106 Carbon Dioxide 26 Anion Gap 8 BUN 19 H Creatinine 0.72 Estim Creat Clear Calc 64 Estimated GFR > 60 Glucose 131 H Lactic Acid Calcium 9.2 Magnesium Total Bilirubin 1.3 AST 129 H ALT 56 H Alkaline Phosphatase 116 Total Protein 8.0 Albumin 4.5 Lipase 187 Urine Color Yellow Urine Appearance Cloudy H Urine pH 7.5 Ur Specific [place] 1.019 Urine Protein Trace Urine Glucose (UA) Negative Urine Ketones Negative Ur Blood (Man) Negative Urine Nitrate Negative Urine Bilirubin Negative Urine Urobilinogen 2.0 H Add Ur Microanalysis Reviewed Leukocyte Esterase Rfl 2+ H Urine RBC 0-2 Urine WBC 0-5 Ur Squamous Epith Cells Occasional Urine Bacteria None seen Urine Casts 0-2 POC Urine HCG, Qual 10/28/24 10/29/24 18:38 05:19 WBC 4.2 L RBC 3.87 L Hgb 11.6 L Hct 34.3 L MCV 88.6 MCH 30.0 MCHC 33.8 RDW 13.0 Plt Count 152 MPV 9.3 Immature Gran % (Auto) 0.0 Neut % (Auto) 60.0 Lymph % (Auto) 28.2 Tate % (Auto) 8.8 H Eos % (Auto) 2.8 Baso % (Auto) 0.2 Lymph # (Auto) 1.19 Tate # (Auto) 0.4 Eos # (Auto) 0.1 Baso # (Auto) 0.0 Abs Immat Gran (auto) 0.00 Absolute Neuts (auto) 2.5 Absolute Nucleated RBC 0.000 Nucleated RBC % 0.0 % Immature Plt Fraction PT INR APTT Sodium 141 Potassium 3.9 Chloride 108 H Carbon Dioxide 31 H Anion Gap 2 L BUN 9 D Creatinine 0.69 L Estim Creat Clear Calc 66 Estimated GFR > 60 Glucose 93 Lactic Acid 0.8 Calcium 8.6 Magnesium 2.1 Total Bilirubin 0.8 AST 234 H ALT 208 H Alkaline Phosphatase 127 H Total Protein 6.0 L Albumin 3.7 Lipase Urine Color Urine Appearance Urine pH Ur Specific [place] Urine Protein Urine Glucose (UA) Urine Ketones Ur Blood (Man) Urine Nitrate Urine Bilirubin Urine Urobilinogen Add Ur Microanalysis Leukocyte Esterase Rfl Urine RBC Urine WBC Ur Squamous Epith Cells Urine Bacteria Urine Casts POC Urine HCG, Qual Quality VTE Prophylaxis VTE prophylaxis: mechanical ordered Hospitalist MIPS Advance Care Plan I have confirmed that the patient's Advanced Care Plan is present, code status is documented, or surrogate decision maker is listed in patient medical record.: Yes Medication Reconciliation I have utilized all available resources to obtain, update and review the patients current medications (includes all prescriptions, OTC, herbals, cannabis, and nutritional supplements).: Yes
--- NOTE | 2024-10-29 12:27 | P.CONGI_ITS ---
Assessment and Plan Assessment and plan (1) Intrahepatic bile duct dilation: Code(s): K83.8 - Other specified diseases of biliary tract Status: Acute Assessment and Plan: The patient's presentation with post-cholecystectomy abdominal pain, consistent with biliary colic, along with the imaging findings of dilated bile ducts and elevated transaminase levels, strongly suggests choledocholithiasis. To further investigate, an MRCP has been ordered. This imaging will guide subsequent management: if a common bile duct stone is confirmed, an ERCP will be performed. If the MRCP is negative, the patient will be referred to a tertiary care center for endoscopic ultrasound to assess for smaller or more subtle ductal filling defects that may not be visualized on MRCP. GI Consult Note Consult date/time: 10/29/24 12:27 HPI: Sakshi Miller, a 58-year-old female, presented to the emergency room due to intensifying right upper quadrant and epigastric pain. She has a history of cholecystectomy approximately six years prior. For the past week, she experienced intermittent, self-limiting postprandial pain in the same areas, rating it 8/10 in intensity. The day before admission, she had a more prolonged and severe pain episode, prompting her ER visit. She denied fever, dark urine, or changes in bowel habits. Initial laboratory data revealed a white blood cell count of 8.2 , hemoglobin of 13.1 , hematocrit of 37.8%, and platelets of 196 . Liver function tests showed an AST of 129 and ALT of 56 , with bilirubin and alkaline phosphatase within normal limits. A CT scan demonstrated surgical absence of the gallbladder and intrahepatic biliary dilatation. Repeat labs the following day showed an increase in AST to 234 and ALT to 208 , bilirubin 0.8 and albumin 3.7 . She is currently asymptomatic. Review of Systems 2 Review of Systems: All systems reviewed & are unremarkable except as noted in HPI and below [facility] Surgical History Surgical History (Updated 10/28/24 @ 22:22 by Andreina Bonner PA-C) History of cholecystectomy Social History Social History (Updated 10/28/24 @ 22:23 by Andreina Bonner PA-C) Social History: Surrogate medical decision maker: Lior Miller, spouse. Code status: Full code. Smoking status: Never smoker Second hand tobacco smoke exposure: No Alcohol intake: never Substance use: never Substance use type: does not use Do You Feel Safe in your Home?: Yes Lack of Transportation: No Lack of Food: Never True Current Housing: I Have Housing Concerned About Future Housing: No Difficulty Paying Gas/Electric Bills: No Difficulty Paying for Meds: No Currently Unemployed: No Education: High School Diploma/GED Difficulty w/ Childcare or Family Care: No Spiritual care concerns: No Meds Home Medications and Allergies Home Medications ?Medication ?Instructions ?Recorded ?Confirmed ?Type No Home Medications 10/28/24 10/28/24 History Allergies Allergy/AdvReac Type Severity Reaction Status Date / Time No Known Allergies Allergy Verified 10/28/24 16:31 Vital Signs Vital Signs - 24 hr 10/28/24 16:38 10/28/24 18:41 10/28/24 22:34 Temperature Pulse Rate 65 72 Respiratory Rate 14 12 Blood Pressure 119/91 H 125/62 Pulse Oximetry 100 100 Oxygen Delivery Room Air 10/29/24 05:29 10/29/24 10:00 Temperature 97.8 F Pulse Rate 54 L Respiratory Rate 18 Blood Pressure 112/56 L Pulse Oximetry 98 Oxygen Delivery Room Air Exam 2 Narrative: Not jaundiced. Alert oriented x3. Abdomen: Soft, nontender, nondistended, no hepatomegaly, bowel sounds present and normal. Rest of the exam within normal limits. Results Labs 10/29/24 05:19 10/29/24 05:19 Labs: Short CBC 10/28/24 10/28/24 10/28/24 Range/Units 16:47 16:47 16:47 WBC 8.2 Cancelled (4.5-10.0) K/mm3 Hgb 13.1 Cancelled (12.0-15.0) g/dL Hct 37.8 (37.0-47.0) % Plt Count (150-375) k/mm3 10/28/24 10/28/24 10/29/24 Range/Units 16:47 16:47 05:19 WBC 4.2 L (4.5-10.0) K/mm3 Hgb 11.6 L (12.0-15.0) g/dL Hct Cancelled 34.3 L (37.0-47.0) % Plt Count 196 Cancelled 152 (150-375) k/mm3 BMP 10/28/24 10/29/24 16:47 05:19 Sodium 140 141 Potassium 3.5 3.9 Chloride 106 108 H Carbon Dioxide 26 31 H BUN 19 H 9 D Creatinine 0.72 0.69 L Glucose 131 H 93 Calcium 9.2 8.6 Liver Function 10/28/24 10/29/24 Range/Units 16:47 05:19 Total Bilirubin 1.3 0.8 (0.2-1.3) mg/dL AST 129 H 234 H (14-36) U/L ALT 56 H 208 H (6-35) U/L Alkaline Phosphatase 116 127 H (38-126) U/L Albumin 4.5 3.7 (3.5-5.1) g/dL Urine 10/28/24 Range/Units 17:02 Urine Color Yellow (Yellow) Urine Appearance Cloudy H (Clear) Urine pH 7.5 (5.0-9.0) Ur Specific [place] 1.019 (1.001-1.035) Urine Protein Trace (Negative) mg/dL Urine Glucose (UA) Negative (Negative) mg/dL
[2024-10-29] MEDS: LACTATED RINGERS 1,000 ML 75 ML IV CONT (13:15)
[2024-10-29 14:00] VITALS: BP 111/59; PULSE 50; RESP 18; TEMP 36.1; O2SAT 97
[2024-10-29] MEDS: ACETAMINOPHEN 325 MG TABLET 650 MG PO (16:44)
[2024-10-29 20:00] VITALS: PULSE 50; RESP 18; O2SAT 97
[2024-10-29 21:01] VITALS: BP 113/73; PULSE 76; RESP 18; TEMP 36.4; O2SAT 95
[2024-10-30 04:35] VITALS: BP 101/52; PULSE 52; RESP 18; TEMP 35.9; O2SAT 100
[2024-10-30 06:16] LABS: Hematocrit 33.9 % (37.0-47.0); Hemoglobin 11.6 g/dL (12.0-15.0); Mean Corpuscular HGB Conc 34.2 g/dl (32-36); Mean Corpuscular Volume 87.6 fl (80-100); Mean Platelet Volume 9.4 fl (7.4-10.4); Platelet Count Result 158 k/mm3 (150-375); Red Blood Count 3.87 M/mm3 (4.2-5.4)
[2024-10-30 06:33] LABS: Alanine Aminotransferase 131 U/L (6-35); Albumin Level 3.6 g/dL (3.5-5.1); Alkaline Phosphatase 113 U/L (38-126); Anion Gap 4 mmol/L (4-12); Aspartate Amino Transferase 77 U/L (14-36); Bilirubin,Total 0.8 mg/dL (0.2-1.3); Blood Urea Nitrogen 9 mg/dL (7-17); Calcium 8.6 mg/dL (8.4-10.2); Carbon Dioxide 28 mmol/L (22-30); Chloride 108 mmol/L (98-107); Estimated CRCL calculation 68 ml/min; Estimated Glomerular Filt Rate > 60; Glucose 92 mg/dL (65-110); Potassium 3.4 mmol/L (3.4-5.0); Sodium 140 mmol/L (137-145)
[2024-10-30 07:42] VITALS: BP 116/76
[2024-10-30] MEDS: ONDANSETRON INJ 4 MG/2 ML VIAL IV PUSH (07:45)
[2024-10-30] MEDS: HYDROmorphone HCL INJ (*CRX) 2 MG/ML VIAL 0.5 MG IV PUSH (07:46)
[2024-10-30 08:00] VITALS: O2SAT 100
--- NOTE | 2024-10-30 08:14 | WPDGIPROGNO ---
Progress Note: A&P Assessment and Plan (1) Intrahepatic bile duct dilation: Code(s): K83.8 - Other specified diseases of biliary tract Status: Acute Assessment and Plan: Patient status post cholecystectomy in the past, admitted with discretely elevated transaminases and right upper quadrant pain, along with biliary dilatation on imaging studies. Awaiting MRCP to decide best course of action, i.e., ERCP and stone extraction versus referral to tertiary care center for endoscopic sonogram of common bile duct to rule out residual stone. Subjective Date/time seen: 10/30/24 08:14 Interval history: The patient did not require analgesics yesterday, however this morning she started to have epigastric and right upper quadrant pain, requiring a dose of analgesics. Exam Narrative: Unchanged from yesterday. Objective Data Vital Signs Vital Signs: Vital Signs - 24 hr 10/29/24 10:00 10/29/24 14:00 10/29/24 20:00 Temperature 96.9 F L Pulse Rate 50 L 50 L Respiratory Rate 18 18 Blood Pressure 111/59 L Pulse Oximetry 97 97 Oxygen Delivery Room Air Room Air 10/29/24 21:01 10/30/24 04:35 10/30/24 07:42 Temperature 97.6 F 96.7 F L Pulse Rate 76 52 L Respiratory Rate 18 18 Blood Pressure 113/73 101/52 L 116/76 Pulse Oximetry 95 100 Oxygen Delivery 10/30/24 08:00 Temperature Pulse Rate Respiratory Rate Blood Pressure Pulse Oximetry 100 Oxygen Delivery Room Air Intake/Output Intake/Output: Intake & Output 10/27/24 10/28/24 10/29/24 10/30/24 23:59 23:59 23:59 23:59 Intake Total 1343.8 1000 1000 Balance 1343.8 1000 1000 Meds/Results Medications: Active Medications Generic Name Dose Route Start Last Admin Trade Name Freq PRN Reason Stop Dose Admin Acetaminophen 650 mg 10/29/24 13:09 10/29/24 16:44 Acetaminophen 325 Mg Tablet PO 650 mg Q6H PRN Administration Mild Pain (1-3) or Fever Hydromorphone HCl 0.5 mg 10/28/24 19:41 10/30/24 07:46 Hydromorphone Hcl Inj (*Crx) 2 Mg/Ml Vial IV PUSH 0.5 mg Q3H PRN Administration Pain Rated 7-10 Lactated Ringer's 1,000 mls @ 75 mls/hr 10/28/24 18:55 10/30/24 03:07 Lr - Lactated Ringers Iv IV CONT Infused .[id number] RUCHI Infusion Ondansetron HCl 4 mg 10/28/24 18:52 10/30/24 07:45 Ondansetron Inj 4 Mg/2 Ml Vial IV PUSH 4 mg Q4H PRN Administration Nausea Polyethylene Glycol 17 gm 10/29/24 14:15 Polyethylene Glycol 3350 17 Gm Powd.Pack PO DAILY PRN Constipation Radiology Results: ITS Impressions Abdomen/Pelvis CT 10/28/24 18:07 IMPRESSION: 1. Intrahepatic biliary dilatation with a slightly prominent pancreatic duct. Evaluation of the sphincter of Oddi is advised. 2. Constipation. Labs Labs: Laboratory Results - last 24 hr 10/30/24 05:21 WBC 4.0 L RBC 3.87 L Hgb 11.6 L Hct 33.9 L MCV 87.6 MCH 30.0 MCHC 34.2 RDW 13.0 Plt Count 158 MPV 9.4 Sodium 140 Potassium 3.4 Chloride 108 H Carbon Dioxide 28 Anion Gap 4 BUN 9 Creatinine 0.65 L Estim Creat Clear Calc 68 Estimated GFR > 60 Glucose 92 Calcium 8.6 Total Bilirubin 0.8 AST 77 H ALT 131 H Alkaline Phosphatase 113 Total Protein 6.0 L Albumin 3.6
[2024-10-30] MEDS: LACTATED RINGERS 1,000 ML 75 ML IV CONT (11:37)
--- NOTE | 2024-10-30 12:43 | WPDGIPROGNO ---
Progress Note: A&P Assessment and Plan (1) Choledocholithiasis: Code(s): K80.50 - Calculus of bile duct without cholangitis or cholecystitis without obstruction Status: Acute Assessment and Plan: MRCP reviewed with radiologist. There is evidence of a retained bile duct stone. Will perform ERCP tomorrow. Subjective Date/time seen: 10/30/24 12:43 Objective Data Vital Signs Vital Signs: Vital Signs - 24 hr 10/29/24 14:00 10/29/24 20:00 10/29/24 21:01 Temperature 96.9 F L 97.6 F Pulse Rate 50 L 50 L 76 Respiratory Rate 18 18 18 Blood Pressure 111/59 L 113/73 Pulse Oximetry 97 97 95 Oxygen Delivery Room Air 10/30/24 04:35 10/30/24 07:42 10/30/24 08:00 Temperature 96.7 F L Pulse Rate 52 L Respiratory Rate 18 Blood Pressure 101/52 L 116/76 Pulse Oximetry 100 100 Oxygen Delivery Room Air Intake/Output Intake/Output: Intake & Output 10/27/24 10/28/24 10/29/24 10/30/24 23:59 23:59 23:59 23:59 Intake Total 1343.8 1000 1000 Balance 1343.8 1000 1000 Meds/Results Medications: Active Medications Generic Name Dose Route Start Last Admin Trade Name Freq PRN Reason Stop Dose Admin Acetaminophen 650 mg 10/29/24 13:09 10/29/24 16:44 Acetaminophen 325 Mg Tablet PO 650 mg Q6H PRN Administration Mild Pain (1-3) or Fever Hydromorphone HCl 0.5 mg 10/28/24 19:41 10/30/24 07:46 Hydromorphone Hcl Inj (*Crx) 2 Mg/Ml Vial IV PUSH 0.5 mg Q3H PRN Administration Pain Rated 7-10 Lactated Ringer's 1,000 mls @ 75 mls/hr 10/28/24 18:55 10/30/24 11:37 Lr - Lactated Ringers Iv IV CONT 75 mls/hr .[id number] RUCHI Administration Ondansetron HCl 4 mg 10/28/24 18:52 10/30/24 07:45 Ondansetron Inj 4 Mg/2 Ml Vial IV PUSH 4 mg Q4H PRN Administration Nausea Polyethylene Glycol 17 gm 10/29/24 14:15 Polyethylene Glycol 3350 17 Gm Powd.Pack PO DAILY PRN Constipation Radiology Results: ITS Impressions Abdomen/Pelvis CT 10/28/24 18:07 IMPRESSION: 1. Intrahepatic biliary dilatation with a slightly prominent pancreatic duct. Evaluation of the sphincter of Oddi is advised. 2. Constipation. Labs Labs: Laboratory Results - last 24 hr 10/30/24 05:21 WBC 4.0 L RBC 3.87 L Hgb 11.6 L Hct 33.9 L MCV 87.6 MCH 30.0 MCHC 34.2 RDW 13.0 Plt Count 158 MPV 9.4 Sodium 140 Potassium 3.4 Chloride 108 H Carbon Dioxide 28 Anion Gap 4 BUN 9 Creatinine 0.65 L Estim Creat Clear Calc 68 Estimated GFR > 60 Glucose 92 Calcium 8.6 Total Bilirubin 0.8 AST 77 H ALT 131 H Alkaline Phosphatase 113 Total Protein 6.0 L Albumin 3.6
[2024-10-30 14:00] VITALS: BP 116/66; PULSE 55; RESP 18; TEMP 36.3; O2SAT 96
--- NOTE | 2024-10-30 16:04 | P.PNIM_ITS ---
Progress Note: A&P Assessment and Plan (1) Intrahepatic bile duct dilation: Code(s): K83.8 - Other specified diseases of biliary tract Status: Acute Assessment and Plan: Hx Cholecystectomy Possibly multifactorial-retained stone versus narrowing of CBD/Sphincter of Oddi versus sludge MRCP Pending CT Abdomen/Pelvis:1. Intrahepatic biliary dilatation with a slightly prominent pancreatic duct. Evaluation of the sphincter of Oddi is advised. 2. Constipation. AST 234, ALT 208, today 77/131 Supportive care with pain control Antiemetics as needed NPO GI recommended ERCP tomorrow (2) Pancreatic duct dilated: Code(s): K86.89 - Other specified diseases of pancreas Status: Acute Assessment and Plan: As above (3) Epigastric pain: Code(s): R10.13 - Epigastric pain Status: Acute Assessment and Plan: As above (4) Transaminitis: Code(s): R74.01 - Elevation of levels of liver transaminase levels Status: Acute Assessment and Plan: As above Plan DVT prophylaxis on Sq Lovenox Subjective Date/time seen: 10/30/24 16:04 Interval history: Comfortable at bedside Review of Systems Review of Systems: 12 systems were reviewed and are negativ e except for as per HPI. Exam Narrative: General: Nontoxic-appearing female supine in bed in no acute distress. Weight: 72 kg. BMI: 31.0. HEENT: PERRL, EOMI. Sclera anicteric. Oral mucosa moist. Neck: Supple. Respiratory: Lungs are clear to auscultation bilaterally. Cardiovascular: Regular rate and rhythm with S1-S2. Gastrointestinal: Abdomen is soft, nontender, and nondistended with positive bowel sounds. (she did receive pain medications not long prior to my examination) Skin: Warm and dry. No rash or lesions on limited exam. Extremities: No cyanosis, clubbing, or edema. Radial and pedal pulses intact. Neurological: Alert. Cranial nerves 2-12 are grossly intact. No gross focal deficits to casual conversation. Psychiatric: Pleasant and cooperative with normal mood and affect. Judgment and insight intact. Objective Data Vital Signs Vital Signs: Vital Signs - 24 hr 10/29/24 20:00 10/29/24 21:01 10/30/24 04:35 Temperature 97.6 F 96.7 F L Pulse Rate 50 L 76 52 L Respiratory Rate 18 18 18 Blood Pressure 113/73 101/52 L Pulse Oximetry 97 95 100 Oxygen Delivery Room Air 10/30/24 07:42 10/30/24 08:00 10/30/24 14:00 Temperature 97.3 F L Pulse Rate 55 L Respiratory Rate 18 Blood Pressure 116/76 116/66 Pulse Oximetry 100 96 Oxygen Delivery Room Air Intake/Output Intake/Output: Intake & Output 10/27/24 10/28/24 10/29/24 10/30/24 23:59 23:59 23:59 23:59 Intake Total 1343.8 1000 1000 Balance 1343.8 1000 1000 Meds/Results Medications: Active Medications Generic Name Dose Route Start Last Admin Trade Name Freq PRN Reason Stop Dose Admin Acetaminophen 650 mg 10/29/24 13:09 10/29/24 16:44 Acetaminophen 325 Mg Tablet PO 650 mg Q6H PRN Administration Mild Pain (1-3) or Fever Hydromorphone HCl 0.5 mg 10/28/24 19:41 10/30/24 07:46 Hydromorphone Hcl Inj (*Crx) 2 Mg/Ml Vial IV PUSH 0.5 mg Q3H PRN Administration Pain Rated 7-10 Lactated Ringer's 1,000 mls @ 75 mls/hr 10/28/24 18:55 10/30/24 11:37 Lr - Lactated Ringers Iv IV CONT 75 mls/hr .[id number] RUCHI Administration Ondansetron HCl 4 mg 10/28/24 18:52 10/30/24 07:45 Ondansetron Inj 4 Mg/2 Ml Vial IV PUSH 4 mg Q4H PRN Administration Nausea Polyethylene Glycol 17 gm 10/29/24 14:15 Polyethylene Glycol 3350 17 Gm Powd.Pack PO DAILY PRN Constipation Radiology Results: ITS Impressions Abdomen/Pelvis CT 10/28/24 18:07 IMPRESSION: 1. Intrahepatic biliary dilatation with a slightly prominent pancreatic duct. Evaluation of the sphincter of Oddi is advised. 2. Constipation. MRCP 10/30/24 12:35 IMPRESSION: 1. Choledocholithiasis with likely at least partially obstructing 8 mm stone in the distal common bile duct with mild intra and extra hepatic biliary ductal dilation. Labs Labs: Laboratory Results - last 24 hr 10/30/24 05:21 WBC 4.0 L RBC 3.87 L Hgb 11.6 L Hct 33.9 L MCV 87.6 MCH 30.0 MCHC 34.2 RDW 13.0 Plt Count 158 MPV 9.4 Sodium 140 Potassium 3.4 Chloride 108 H Carbon Dioxide 28 Anion Gap 4 BUN 9 Creatinine 0.65 L Estim Creat Clear Calc 68 Estimated GFR > 60 Glucose 92 Calcium 8.6 Total Bilirubin 0.8 AST 77 H ALT 131 H Alkaline Phosphatase 113 Total Protein 6.0 L Albumin 3.6 Quality VTE Prophylaxis VTE prophylaxis: mechanical ordered
[2024-10-30 21:25] VITALS: BP 123/68; PULSE 56; RESP 12; TEMP 36.2; O2SAT 95
[2024-10-31] VITALS (9 sets, daily range): BP systolic 113–175; BP diastolic 62–98; PULSE 48–96; RESP 12–22; TEMP 35.9–36.3; O2SAT 97–100
[2024-10-31 06:06] LABS: Lactic Acid Reflex 0.7 mmol/L (0.7-2.0)
[2024-10-31 06:18] LABS: Alanine Aminotransferase 135 U/L (6-35); Albumin Level 3.8 g/dL (3.5-5.1); Alkaline Phosphatase 122 U/L (38-126); Anion Gap 7 mmol/L (4-12); Aspartate Amino Transferase 67 U/L (14-36); Bilirubin,Total 0.8 mg/dL (0.2-1.3); Blood Urea Nitrogen 7 mg/dL (7-17); Calcium 8.7 mg/dL (8.4-10.2); Carbon Dioxide 24 mmol/L (22-30); Chloride 106 mmol/L (98-107); Estimated CRCL calculation 77 ml/min; Estimated Glomerular Filt Rate > 60; Glucose 93 mg/dL (65-110); Magnesium 2.1 mg/dL (1.6-2.3); Potassium 3.6 mmol/L (3.4-5.0); Sodium 137 mmol/L (137-145)
[2024-10-31 06:57] LABS: Basophils Percent Auto 0.4 % (0.2-1.2); Eosinophils Absolute Auto 0.2 K/mm3 (0-0.3); Eosinophils Percent Auto 4.2 % (0-4.4); Hematocrit 35.5 % (37.0-47.0); Hemoglobin 12.2 g/dL (12.0-15.0); Lymphocytes Absolute Auto 1.39 K/mm3 (0.9-3.2); Lymphocytes Percent Auto 29.4 % (18.3-44.2); Mean Corpuscular HGB Conc 34.4 g/dl (32-36); Mean Corpuscular Hemoglobin 29.8 pg (26-34); Mean Corpuscular Volume 86.8 fl (80-100); Mean Platelet Volume 9.2 fl (7.4-10.4); Monocytes Absolute Auto 0.4 K/mm3 (0.1-0.6); Monocytes Percent Auto 7.8 % (2.6-8.5); Neutrophils Absolute Auto 2.7 K/mm3 (1.3-6.7); Neutrophils Percent Auto 58.2 % (45.5-73.1); Platelet Count Result 156 k/mm3 (150-375); Red Blood Count 4.09 M/mm3 (4.2-5.4); Red Cell Distribution Width 12.7 % (11.5-14.5); White Blood Count 4.7 K/mm3 (4.5-10.0)
[2024-10-31] MEDS: ENOXAPARIN 40 MG/0.4 ML SYRINGE SUB-Q (09:00)
[2024-10-31] MEDS: LACTATED RINGERS 1,000 ML 75 ML IV CONT (10:46)
[2024-10-31] MEDS: INDOMETHACIN 50 MG SUPP.RECT 100 MG RECTAL (10:47)
--- NOTE | 2024-10-31 11:32 | P.PNAN_ITS ---
Anes - Eval Pre Procedure Procedure: Operation Date: 10/31/24 11:30 Proposed Procedures p Endoscopic Retro Cholangiopancreatogram - Adair Shen MD Date/Time: 10/31/24 11:32 Surgeon: Hermelinda Preop Diagnosis: choledocolithiasis Pre Op Diagnosis: Abdominal pain, MRCP Patient Data Age: 58 Gender: F Height: 1.52 m Weight: 68.6 kg Last Vital Signs Temp 97.3 F L 10/31/24 10:50 Pulse 52 L 10/31/24 10:50 Resp 16 10/31/24 10:50 BP 113/77 10/31/24 10:50 Pulse Ox 97 10/31/24 10:50 O2 Del Method Room Air 10/31/24 10:50 Allergies Allergy/AdvReac Type Severity Reaction Status Date / Time No Known Allergies Allergy Verified 10/28/24 16:31 Home Medications ?Medication ?Instructions ?Recorded ?Confirmed ?Type No Home Medications 10/28/24 10/28/24 History Laboratory Tests 10/31/24 10/31/24 10/31/24 05:31 05:32 06:24 WBC 4.7 K/mm3 (4.5-10.0) RBC 4.09 L M/mm3 (4.2-5.4) Hgb 12.2 g/dL (12.0-15.0) Hct 35.5 L % (37.0-47.0) MCV 86.8 fl (80-100) MCH 29.8 pg (26-34) MCHC 34.4 g/dl (32-36) RDW 12.7 % (11.5-14.5) Plt Count 156 k/mm3 (150-375) MPV 9.2 fl (7.4-10.4) Immature Gran % (Auto) 0.0 % (0-0.5) Neut % (Auto) 58.2 % (45.5-73.1) Lymph % (Auto) 29.4 % (18.3-44.2) [place] % (Auto) 7.8 % (2.6-8.5) Eos % (Auto) 4.2 % (0-4.4) Baso % (Auto) 0.4 % (0.2-1.2) Lymph # (Auto) 1.39 K/mm3 (0.9-3.2) [place] # (Auto) 0.4 K/mm3 (0.1-0.6) Eos # (Auto) 0.2 K/mm3 (0-0.3) Baso # (Auto) 0.0 K/mm3 (0.0-0.1) Abs Immat Gran (auto) 0.00 K/mm3 (0.00-0.031) Absolute Neuts (auto) 2.7 K/mm3 (1.3-6.7) Absolute Nucleated RBC 0.000 K/mm3 (0.0-0.012) Nucleated RBC % 0.0 % (0.0-0.2) Sodium 137 mmol/L (137-145) Potassium 3.6 mmol/L (3.4-5.0) Chloride 106 mmol/L (98-107) Carbon Dioxide 24 mmol/L (22-30) Anion Gap 7 mmol/L (4-12) BUN 7 mg/dL (7-17) Creatinine 0.57 L mg/dL (0.7-1.0) Estim Creat Clear Calc 77 ml/min Estimated GFR > 60 (59 - ) Glucose 93 mg/dL (65-110) Lactic Acid 0.7 mmol/L (0.7-2.0) Calcium 8.7 mg/dL (8.4-10.2) Magnesium 2.1 mg/dL (1.6-2.3) Total Bilirubin 0.8 mg/dL (0.2-1.3) AST 67 H U/L (14-36) ALT 135 H U/L (6-35) Alkaline Phosphatase 122 U/L (38-126) Total Protein 7.0 g/dL (6.3-8.2) Albumin 3.8 g/dL (3.5-5.1) EC10/28/24 SR 64 Patient hx anesthesia problems: none Family hx anesthesia problems: none Results Review: All pre-operative results and documents have been reviewed as part of the pre- operative evaluation. [facility] Surgical History Surgical History History of cholecystectomy Social History Social History Social History: Surrogate medical decision maker: Lior Miller, spouse. Code status: Full code. Smoking status: Never smoker Second hand tobacco smoke exposure: No Alcohol intake: never Substance use: never Substance use type: does not use Do You Feel Safe in your Home?: Yes Lack of Transportation: No Lack of Food: Never True Current Housing: I Have Housing Concerned About Future Housing: No Difficulty Paying Gas/Electric Bills: No Difficulty Paying for Meds: No Currently Unemployed: No Education: High School Diploma/GED Difficulty w/ Childcare or Family Care: No Spiritual care concerns: No Exam Day of Procedure 10/31/24 11:32
[2024-10-31] MEDS: LACTATED RINGERS 1,000 ML 150 ML IV CONT ×2 (12:00→12:41)
--- NOTE | 2024-10-31 12:37 | P.PNIM_ITS ---
Progress Note: A&P Assessment and Plan (1) Intrahepatic bile duct dilation: Code(s): K83.8 - Other specified diseases of biliary tract Status: Acute Assessment and Plan: Hx Cholecystectomy Possibly multifactorial-retained stone versus narrowing of CBD/Sphincter of Oddi versus sludge MRCP Pending CT Abdomen/Pelvis:1. Intrahepatic biliary dilatation with a slightly prominent pancreatic duct. Evaluation of the sphincter of Oddi is advised. 2. Constipation. AST 234, ALT 208, today 67/135 Supportive care with pain control Antiemetics as needed NPO GI recommended ERCP today (2) Pancreatic duct dilated: Code(s): K86.89 - Other specified diseases of pancreas Status: Acute Assessment and Plan: As above (3) Epigastric pain: Code(s): R10.13 - Epigastric pain Status: Acute Assessment and Plan: As above (4) Transaminitis: Code(s): R74.01 - Elevation of levels of liver transaminase levels Status: Acute Assessment and Plan: As above Plan DVT prophylaxis on Sq Lovenox Subjective Date/time seen: 10/31/24 12:37 Interval history: Comfortable at bedside Review of Systems Review of Systems: 12 systems were reviewed and are negativ e except for as per HPI. Exam Narrative: General: Nontoxic-appearing female supine in bed in no acute distress. Weight: 72 kg. BMI: 31.0. HEENT: PERRL, EOMI. Sclera anicteric. Oral mucosa moist. Neck: Supple. Respiratory: Lungs are clear to auscultation bilaterally. Cardiovascular: Regular rate and rhythm with S1-S2. Gastrointestinal: Abdomen is soft, nontender, and nondistended with positive bowel sounds. (she did receive pain medications not long prior to my examination) Skin: Warm and dry. No rash or lesions on limited exam. Extremities: No cyanosis, clubbing, or edema. Radial and pedal pulses intact. Neurological: Alert. Cranial nerves 2-12 are grossly intact. No gross focal deficits to casual conversation. Psychiatric: Pleasant and cooperative with normal mood and affect. Judgment and insight intact. Objective Data Vital Signs Vital Signs: Vital Signs - 24 hr 10/30/24 14:00 10/30/24 20:00 10/30/24 21:25 Temperature 97.3 F L 97.2 F L Pulse Rate 55 L 56 L Respiratory Rate 18 12 Blood Pressure 116/66 123/68 Pulse Oximetry 96 95 Oxygen Delivery Room Air 10/31/24 05:49 10/31/24 10:50 Temperature 96.7 F L 97.3 F L Pulse Rate 50 L 52 L Respiratory Rate 12 16 Blood Pressure 115/67 113/77 Pulse Oximetry 99 97 Oxygen Delivery Room Air Intake/Output Intake/Output: Intake & Output 10/28/24 10/29/24 10/30/24 10/31/24 23:59 23:59 23:59 23:59 Intake Total 1343.8 1000 1480 1000 Balance 1343.8 1000 1480 1000 Meds/Results Medications: Active Medications Generic Name Dose Route Start Last Admin Trade Name Freq PRN Reason Stop Dose Admin Acetaminophen 650 mg 10/29/24 13:09 10/29/24 16:44 Acetaminophen 325 Mg Tablet PO 650 mg Q6H PRN Administration Mild Pain (1-3) or Fever Enoxaparin Sodium 40 mg 10/31/24 09:00 10/31/24 09:00 Enoxaparin 40 Mg/0.4 Ml Syringe SUB-Q 40 mg DAILY RUCHI Administration Hydromorphone HCl 0.5 mg 10/28/24 19:41 10/30/24 07:46 Hydromorphone Hcl Inj (*Crx) 2 Mg/Ml Vial IV PUSH 0.5 mg Q3H PRN Administration Pain Rated 7-10 Lactated Ringer's 1,000 mls @ 75 mls/hr 10/28/24 18:55 10/31/24 10:46 Lr - Lactated Ringers Iv IV CONT 75 mls/hr .[id number] RUCHI Administration Lactated Ringer's 1,000 mls @ 150 mls/hr 10/31/24 10:50 Lr - Lactated Ringers Iv IV CONT .[id number] RUCHI Ondansetron HCl 4 mg 10/28/24 18:52 10/30/24 07:45 Ondansetron Inj 4 Mg/2 Ml Vial IV PUSH 4 mg Q4H PRN Administration Nausea Polyethylene Glycol 17 gm 10/29/24 14:15 Polyethylene Glycol 3350 17 Gm Powd.Pack PO DAILY PRN Constipation Radiology Results: ITS Impressions Abdomen/Pelvis CT 10/28/24 18:07 IMPRESSION: 1. Intrahepatic biliary dilatation with a slightly prominent pancreatic duct. Evaluation of the sphincter of Oddi is advised. 2. Constipation. MRCP 10/30/24 12:35 IMPRESSION: 1. Choledocholithiasis with likely at least partially obstructing 8 mm stone in the distal common bile duct with mild intra and extra hepatic biliary ductal dilation. Labs Labs: Laboratory Results - last 24 hr 10/31/24 10/31/24 10/31/24 05:31 05:32 06:24 WBC 4.7 RBC 4.09 L Hgb 12.2 Hct 35.5 L MCV 86.8 MCH 29.8 MCHC 34.4 RDW 12.7 Plt Count 156 MPV 9.2 Immature Gran % (Auto) 0.0 Neut % (Auto) 58.2 Lymph % (Auto) 29.4 [place] % (Auto) 7.8 Eos % (Auto) 4.2 Baso % (Auto) 0.4 Lymph # (Auto) 1.39 [place] # (Auto) 0.4 Eos # (Auto) 0.2 Baso # (Auto) 0.0 Abs Immat Gran (auto) 0.00 Absolute Neuts (auto) 2.7 Absolute Nucleated RBC 0.000 Nucleated RBC % 0.0 Sodium 137 Potassium 3.6 Chloride 106 Carbon Dioxide 24 Anion Gap 7 BUN 7 Creatinine 0.57 L Estim Creat Clear Calc 77 Estimated GFR > 60 Glucose 93 Lactic Acid 0.7 Calcium 8.7 Magnesium 2.1 Total Bilirubin 0.8 AST 67 H ALT 135 H Alkaline Phosphatase 122 Total Protein 7.0 Albumin 3.8 Quality VTE Prophylaxis VTE prophylaxis: mechanical ordered
--- NOTE | 2024-10-31 12:37 | P.PNAN_ITS ---
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 Informed Consent: The patient's anesthetic plan and its attendant risks and benefits were discussed with the patient/family/POA. Questions were solicited and answers provided to the satisfaction of the patient/family/POA.
--- NOTE | 2024-10-31 17:04 | P.PNGI_ITS ---
Progress Note: A&P Assessment and Plan (1) Choledocholithiasis: Code(s): K80.50 - Calculus of bile duct without cholangitis or cholecystitis without obstruction Status: Acute Assessment and Plan: Selective cannulation of the common bile duct could not be achieved. To prevent post ERCP pancreatitis, a temporary plastic pancreatic stent was placed. Coordinations are currently made with [facility] advanced endoscopy service, and the patient will be called by them within next 24 hours to schedule an attempt at ERCP and stone extraction. Patient can be discharged home this evening with the low-fat diet. Subjective Date/time seen: 10/31/24 17:04 Interval history: See ERCP report in chart. Objective Data Vital Signs Vital Signs: Vital Signs - 24 hr 10/30/24 20:00 10/30/24 21:25 10/31/24 05:49 Temperature 97.2 F L 96.7 F L Pulse Rate 56 L 50 L Respiratory Rate 12 12 Blood Pressure 123/68 115/67 Pulse Oximetry 95 99 Oxygen Delivery Room Air Oxygen Flow Rate 10/31/24 10:50 10/31/24 14:01 10/31/24 14:11 Temperature 97.3 F L 96.9 F L Pulse Rate 52 L 51 L 50 L Respiratory Rate 16 21 H 20 Blood Pressure 113/77 173/83 H 170/81 H Pulse Oximetry 97 100 100 Oxygen Delivery Room Air Simple Face Mask Simple Face Mask Oxygen Flow Rate 2 2 10/31/24 14:21 10/31/24 14:31 10/31/24 14:41 Temperature Pulse Rate 83 58 L 48 L Respiratory Rate 14 16 19 Blood Pressure 175/94 H 145/68 H 174/74 H Pulse Oximetry 100 98 99 Oxygen Delivery Simple Face Mask Room Air Room Air Oxygen Flow Rate 2 10/31/24 14:51 Temperature Pulse Rate 48 L Respiratory Rate 22 H Blood Pressure 150/62 H Pulse Oximetry 99 Oxygen Delivery Room Air Oxygen Flow Rate Intake/Output Intake/Output: Intake & Output 10/28/24 10/29/24 10/30/24 10/31/24 23:59 23:59 23:59 23:59 Intake Total 1343.8 1000 1480 1700.0 Balance 1343.8 1000 1480 1700.0 Meds/Results Medications: Active Medications Generic Name Dose Route Start Last Admin Trade Name Freq PRN Reason Stop Dose Admin Acetaminophen 650 mg 10/29/24 13:09 10/29/24 16:44 Acetaminophen 325 Mg Tablet PO 650 mg Q6H PRN Administration Mild Pain (1-3) or Fever Enoxaparin Sodium 40 mg 10/31/24 09:00 10/31/24 09:00 Enoxaparin 40 Mg/0.4 Ml Syringe SUB-Q 40 mg DAILY RUCHI Administration Hydromorphone HCl 0.5 mg 10/28/24 19:41 10/30/24 07:46 Hydromorphone Hcl Inj (*Crx) 2 Mg/Ml Vial IV PUSH 0.5 mg Q3H PRN Administration Pain Rated 7-10 Lactated Ringer's 1,000 mls @ 75 mls/hr 10/28/24 18:55 10/31/24 12:40 Lr - Lactated Ringers Iv IV CONT Infused .[id number] RUCHI Infusion Ondansetron HCl 4 mg 10/28/24 18:52 10/30/24 07:45 Ondansetron Inj 4 Mg/2 Ml Vial IV PUSH 4 mg Q4H PRN Administration Nausea Polyethylene Glycol 17 gm 10/29/24 14:15 Polyethylene Glycol 3350 17 Gm Powd.Pack PO DAILY PRN Constipation Radiology Results: ITS Impressions Abdomen/Pelvis CT 10/28/24 18:07 IMPRESSION: 1. Intrahepatic biliary dilatation with a slightly prominent pancreatic duct. Evaluation of the sphincter of Oddi is advised. 2. Constipation. MRCP 10/30/24 12:35 IMPRESSION: 1. Choledocholithiasis with likely at least partially obstructing 8 mm stone in the distal common bile duct with mild intra and extra hepatic biliary ductal dilation. Labs Labs: Laboratory Results - last 24 hr 10/31/24 10/31/24 10/31/24 05:31 05:32 06:24 WBC 4.7 RBC 4.09 L Hgb 12.2 Hct 35.5 L MCV 86.8 MCH 29.8 MCHC 34.4 RDW 12.7 Plt Count 156 MPV 9.2 Immature Gran % (Auto) 0.0 Neut % (Auto) 58.2 Lymph % (Auto) 29.4 [place] % (Auto) 7.8 Eos % (Auto) 4.2 Baso % (Auto) 0.4 Lymph # (Auto) 1.39 [place] # (Auto) 0.4 Eos # (Auto) 0.2 Baso # (Auto) 0.0 Abs Immat Gran (auto) 0.00 Absolute Neuts (auto) 2.7 Absolute Nucleated RBC 0.000 Nucleated RBC % 0.0 Sodium 137 Potassium 3.6 Chloride 106 Carbon Dioxide 24 Anion Gap 7 BUN 7 Creatinine 0.57 L Estim Creat Clear Calc 77 Estimated GFR > 60 Glucose 93 Lactic Acid 0.7 Calcium 8.7 Magnesium 2.1 Total Bilirubin 0.8 AST 67 H ALT 135 H Alkaline Phosphatase 122 Total Protein 7.0 Albumin 3.8
[2024-10-31] MEDS: ACETAMINOPHEN 325 MG TABLET 650 MG PO (21:02)
[2024-11-01] MEDS: HYDROmorphone HCL INJ (*CRX) 2 MG/ML VIAL 0.5 MG IV PUSH ×4 (02:19→18:14)
[2024-11-01 05:06] VITALS: BP 137/80; PULSE 68; RESP 18; TEMP 37.1; O2SAT 99
[2024-11-01 06:45] LABS: Basophils Percent Auto 0.1 % (0.2-1.2); Hematocrit 35.5 % (37.0-47.0); Hemoglobin 12.3 g/dL (12.0-15.0); Immature Granulocyte Absolute 0.02 K/mm3 (0.00-0.031); Immature Granulocyte Percent A 0.3 % (0-0.5); Lymphocytes Absolute Auto 0.92 K/mm3 (0.9-3.2); Lymphocytes Percent Auto 12.3 % (18.3-44.2); Mean Corpuscular HGB Conc 34.6 g/dl (32-36); Mean Corpuscular Hemoglobin 29.9 pg (26-34); Mean Corpuscular Volume 86.2 fl (80-100); Monocytes Absolute Auto 0.7 K/mm3 (0.1-0.6); Monocytes Percent Auto 8.7 % (2.6-8.5); Neutrophils Absolute Auto 5.9 K/mm3 (1.3-6.7); Neutrophils Percent Auto 78.6 % (45.5-73.1); Platelet Count Result 159 k/mm3 (150-375); Red Blood Count 4.12 M/mm3 (4.2-5.4); Red Cell Distribution Width 12.8 % (11.5-14.5); White Blood Count 7.5 K/mm3 (4.5-10.0)
[2024-11-01] MEDS: LACTATED RINGERS 1,000 ML 999 ML IV CONT (06:50)
[2024-11-01 06:57] LABS: Alanine Aminotransferase 175 U/L (6-35); Alkaline Phosphatase 135 U/L (38-126); Anion Gap 7 mmol/L (4-12); Aspartate Amino Transferase 240 U/L (14-36); Bilirubin,Total 1.3 mg/dL (0.2-1.3); Blood Urea Nitrogen 14 mg/dL (7-17); Carbon Dioxide 26 mmol/L (22-30); Chloride 109 mmol/L (98-107); Estimated CRCL calculation 62 ml/min; Estimated Glomerular Filt Rate > 60; Glucose 138 mg/dL (65-110); Potassium 3.4 mmol/L (3.4-5.0); Sodium 142 mmol/L (137-145)
--- NOTE | 2024-11-01 07:23 | WPDGIPROGNO ---
Progress Note: A&P Assessment and Plan (1) Abdominal pain: Code(s): R10.9 - Unspecified abdominal pain Status: Acute Assessment and Plan: Patient with late onset severe epigastric pain 8 hours after ERCP and stent placement in the pancreatic duct. Suspected post ERCP pancreatitis despite preventing measures such as indomethacin suppository, liquids and pancreatic stenting. Will give lactated Ringer's 200 cc intravenous bolus stat followed by 125 cc/hour and obtain a stat lipase level. Will monitor her closely. Subjective Date/time seen: 11/01/24 07:23 Interval history: patient started having severe epigastric pain last night, requiring Dilaudid. This morning she feels better however pain is still pr Exam Narrative: Abdomen: Tender in the epigastric and both upper quadrants. No rebound. Objective Data Vital Signs Vital Signs: Vital Signs - 24 hr 10/31/24 10:50 10/31/24 14:01 10/31/24 14:11 Temperature 97.3 F L 96.9 F L Pulse Rate 52 L 51 L 50 L Respiratory Rate 16 21 H 20 Blood Pressure 113/77 173/83 H 170/81 H Pulse Oximetry 97 100 100 Oxygen Delivery Room Air Simple Face Mask Simple Face Mask Oxygen Flow Rate 2 2 10/31/24 14:21 10/31/24 14:31 10/31/24 14:41 Temperature Pulse Rate 83 58 L 48 L Respiratory Rate 14 16 19 Blood Pressure 175/94 H 145/68 H 174/74 H Pulse Oximetry 100 98 99 Oxygen Delivery Simple Face Mask Room Air Room Air Oxygen Flow Rate 2 10/31/24 14:51 10/31/24 20:00 10/31/24 21:00 Temperature 97.4 F L Pulse Rate 48 L 96 Respiratory Rate 22 H 20 Blood Pressure 150/62 H 125/98 H Pulse Oximetry 99 97 Oxygen Delivery Room Air Room Air Oxygen Flow Rate 11/01/24 05:06 Temperature 98.7 F Pulse Rate 68 Respiratory Rate 18 Blood Pressure 137/80 Pulse Oximetry 99 Oxygen Delivery Oxygen Flow Rate Intake/Output Intake/Output: Intake & Output 10/29/24 10/30/24 10/31/24 11/01/24 23:59 23:59 23:59 23:59 Intake Total 1000 1480 1940.0 550 Balance 1000 1480 1940.0 550 Meds/Results Medications: Active Medications Generic Name Dose Route Start Last Admin Trade Name Freq PRN Reason Stop Dose Admin Acetaminophen 650 mg 10/29/24 13:09 10/31/24 21:02 Acetaminophen 325 Mg Tablet PO 650 mg Q6H PRN Administration Mild Pain (1-3) or Fever Enoxaparin Sodium 40 mg 10/31/24 09:00 10/31/24 09:00 Enoxaparin 40 Mg/0.4 Ml Syringe SUB-Q 40 mg DAILY RUCHI Administration Hydromorphone HCl 0.5 mg 10/28/24 19:41 11/01/24 05:22 Hydromorphone Hcl Inj (*Crx) 2 Mg/Ml Vial IV PUSH 0.5 mg Q3H PRN Administration Pain Rated 7-10 Lactated Ringer's 1,000 mls @ 75 mls/hr 10/28/24 18:55 10/31/24 12:40 Lr - Lactated Ringers Iv IV CONT Infused .[id number] RUCHI Infusion Lactated Ringer's 1,000 mls @ 999 mls/hr 11/01/24 06:40 11/01/24 06:50 Lr - Lactated Ringers Iv IV CONT 11/01/24 07:40 999 mls/hr .Q1H1M STA Administration Lactated Ringer's 1,000 mls @ 125 mls/hr 11/01/24 06:40 Lr - Lactated Ringers Iv IV CONT .Q8H RUCHI Ondansetron HCl 4 mg 10/28/24 18:52 10/30/24 07:45 Ondansetron Inj 4 Mg/2 Ml Vial IV PUSH 4 mg Q4H PRN Administration Nausea Polyethylene Glycol 17 gm 10/29/24 14:15 Polyethylene Glycol 3350 17 Gm Powd.Pack PO DAILY PRN Constipation Radiology Results: ITS Impressions Abdomen/Pelvis CT 10/28/24 18:07 IMPRESSION: 1. Intrahepatic biliary dilatation with a slightly prominent pancreatic duct. Evaluation of the sphincter of Oddi is advised. 2. Constipation. MRCP 10/30/24 12:35 IMPRESSION: 1. Choledocholithiasis with likely at least partially obstructing 8 mm stone in the distal common bile duct with mild intra and extra hepatic biliary ductal dilation. Labs Labs: Laboratory Results - last 24 hr 11/01/24 06:26 WBC 7.5 RBC 4.12 L Hgb 12.3 Hct 35.5 L MCV 86.2 MCH 29.9 MCHC 34.6 RDW 12.8 Plt Count 159 MPV 9.0 Immature Gran % (Auto) 0.3 Neut % (Auto) 78.6 H Lymph % (Auto) 12.3 L [place] % (Auto) 8.7 H Eos % (Auto) 0.0 Baso % (Auto) 0.1 L Lymph # (Auto) 0.92 [place] # (Auto) 0.7 H Eos # (Auto) 0.0 Baso # (Auto) 0.0 Abs Immat Gran (auto) 0.02 Absolute Neuts (auto) 5.9 Absolute Nucleated RBC 0.000 Nucleated RBC % 0.0 Sodium 142 Potassium 3.4 Chloride 109 H Carbon Dioxide 26 Anion Gap 7 BUN 14 D Creatinine 0.72 Estim Creat Clear Calc 62 Estimated GFR > 60 Glucose 138 H Calcium 9.0 Magnesium 2.0 Total Bilirubin 1.3 AST 240 H ALT 175 H Alkaline Phosphatase 135 H Total Protein 7.0 Albumin 4.0
[2024-11-01] MEDS: LACTATED RINGERS 1,000 ML 125 ML IV CONT (07:45)
[2024-11-01 08:01] LABS: Lipase 8949 U/L (23-300)
[2024-11-01 08:59] VITALS: O2SAT 98
[2024-11-01] MEDS: ENOXAPARIN 40 MG/0.4 ML SYRINGE SUB-Q (09:59)
[2024-11-01] MEDS: ONDANSETRON INJ 4 MG/2 ML VIAL IV PUSH (13:52)
[2024-11-01 14:00] VITALS: BP 127/68; PULSE 60; RESP 14; TEMP 36.2; O2SAT 94
[2024-11-01 14:38] LABS: Hematocrit 34.5 % (37.0-47.0); Immature Platelet Fraction Pct 1.8 % (0.9-11.2); Mean Corpuscular HGB Conc 34.8 g/dl (32-36); Mean Corpuscular Hemoglobin 30.2 pg (26-34); Mean Corpuscular Volume 86.9 fl (80-100); Mean Platelet Volume 9.1 fl (7.4-10.4); Platelet Count Result 165 k/mm3 (150-375); Red Blood Count 3.97 M/mm3 (4.2-5.4); Red Cell Distribution Width 13.1 % (11.5-14.5); White Blood Count 8.4 K/mm3 (4.5-10.0)
[2024-11-01 14:48] LABS: Alanine Aminotransferase 161 U/L (6-35); Albumin Level 3.8 g/dL (3.5-5.1); Alkaline Phosphatase 126 U/L (38-126); Anion Gap 7 mmol/L (4-12); Aspartate Amino Transferase 132 U/L (14-36); Bilirubin,Total 0.8 mg/dL (0.2-1.3); Blood Urea Nitrogen 14 mg/dL (7-17); Calcium 8.8 mg/dL (8.4-10.2); Carbon Dioxide 28 mmol/L (22-30); Chloride 107 mmol/L (98-107); Estimated CRCL calculation 64 ml/min; Estimated Glomerular Filt Rate > 60; Glucose 125 mg/dL (65-110); Sodium 142 mmol/L (137-145)
[2024-11-01 14:51] LABS: CRP < 0.5 mg/dL (<1.0)
[2024-11-01] MEDS: LACTATED RINGERS 1,000 ML 100 ML IV CONT (16:43)
--- NOTE | 2024-11-01 17:40 | P.PNIM_ITS ---
Progress Note: A&P Assessment and Plan (1) Intrahepatic bile duct dilation: Code(s): K83.8 - Other specified diseases of biliary tract Status: Acute Assessment and Plan: Hx Cholecystectomy Possibly multifactorial-retained stone versus narrowing of CBD/Sphincter of Oddi versus sludge S/p ERCP CT Abdomen/Pelvis:1. Intrahepatic biliary dilatation with a slightly prominent pancreatic duct. Evaluation of the sphincter of Oddi is advised. AST 234, ALT 208, today 132/161 Supportive care with pain control PRN pain control (2) Pancreatic duct dilated: Code(s): K86.89 - Other specified diseases of pancreas Status: Acute Assessment and Plan: S/p ERCP (3) Transaminitis: Code(s): R74.01 - Elevation of levels of liver transaminase levels Status: Acute Assessment and Plan: As above Plan Post-ERCP pancreatitis abd pain and tenderness present AST/ALT 240/175, then decreased to 132/161 Lipase 8949 Advance diet per GI, IVF GI following DVT prophylaxis on Sq Lovenox Subjective Date/time seen: 11/01/24 17:40 Interval history: Complaining of abd pain Review of Systems Review of Systems: 12 systems were reviewed and are negativ e except for as per HPI. Exam Narrative: General: Nontoxic-appearing female supine in bed in no acute distress. Weight: 72 kg. BMI: 31.0. HEENT: PERRL, EOMI. Sclera anicteric. Oral mucosa moist. Neck: Supple. Respiratory: Lungs are clear to auscultation bilaterally. Cardiovascular: Regular rate and rhythm with S1-S2. Gastrointestinal: Abdomen is soft, nontender, and nondistended with positive bowel sounds. (she did receive pain medications not long prior to my examination) Skin: Warm and dry. No rash or lesions on limited exam. Extremities: No cyanosis, clubbing, or edema. Radial and pedal pulses intact. Neurological: Alert. Cranial nerves 2-12 are grossly intact. No gross focal deficits to casual conversation. Psychiatric: Pleasant and cooperative with normal mood and affect. Judgment and insight intact. Objective Data Vital Signs Vital Signs: Vital Signs - 24 hr 10/31/24 20:00 10/31/24 21:00 11/01/24 05:06 Temperature 97.4 F L 98.7 F Pulse Rate 96 68 Respiratory Rate 20 18 Blood Pressure 125/98 H 137/80 Pulse Oximetry 97 99 Oxygen Delivery Room Air 05/29/25 08:59 11/01/24 14:00 Temperature 97.1 F L Pulse Rate 60 Respiratory Rate 14 Blood Pressure 127/68 Pulse Oximetry 98 94 Oxygen Delivery Room Air Intake/Output Intake/Output: Intake & Output 10/29/24 10/30/24 10/31/24 11/01/24 23:59 23:59 23:59 23:59 Intake Total 1000 1480 1940.0 1550.0 Balance 1000 1480 1940.0 1550.0 Meds/Results Medications: Active Medications Generic Name Dose Route Start Last Admin Trade Name Freq PRN Reason Stop Dose Admin Acetaminophen 650 mg 10/29/24 13:09 10/31/24 21:02 Acetaminophen 325 Mg Tablet PO 650 mg Q6H PRN Administration Mild Pain (1-3) or Fever Enoxaparin Sodium 40 mg 10/31/24 09:00 11/01/24 09:59 Enoxaparin 40 Mg/0.4 Ml Syringe SUB-Q 40 mg DAILY RUCHI Administration Hydromorphone HCl 0.5 mg 10/28/24 19:41 11/01/24 09:58 Hydromorphone Hcl Inj (*Crx) 2 Mg/Ml Vial IV PUSH 0.5 mg Q3H PRN Administration Pain Rated 7-10 Lactated Ringer's 1,000 mls @ 100 mls/hr 11/01/24 06:40 11/01/24 16:43 Lr - Lactated Ringers Iv IV CONT 100 mls/hr .Q10H RUCHI Administration Ondansetron HCl 4 mg 10/28/24 18:52 11/01/24 13:52 Ondansetron Inj 4 Mg/2 Ml Vial IV PUSH 4 mg Q4H PRN Administration Nausea Polyethylene Glycol 17 gm 10/29/24 14:15 Polyethylene Glycol 3350 17 Gm Powd.Pack PO DAILY PRN Constipation Radiology Results: ITS Impressions Abdomen/Pelvis CT 10/28/24 18:07 IMPRESSION: 1. Intrahepatic biliary dilatation with a slightly prominent pancreatic duct. Evaluation of the sphincter of Oddi is advised. 2. Constipation. MRCP 10/30/24 12:35 IMPRESSION: 1. Choledocholithiasis with likely at least partially obstructing 8 mm stone in the distal common bile duct with mild intra and extra hepatic biliary ductal dilation. Labs Labs: Laboratory Results - last 24 hr 11/01/24 11/01/24 11/01/24 06:26 06:39 14:31 WBC 7.5 8.4 RBC 4.12 L 3.97 L Hgb 12.3 12.0 Hct 35.5 L 34.5 L MCV 86.2 86.9 MCH 29.9 30.2 MCHC 34.6 34.8 RDW 12.8 13.1 Plt Count 159 165 MPV 9.0 9.1 Immature Gran % (Auto) 0.3 Neut % (Auto) 78.6 H Lymph % (Auto) 12.3 L [place] % (Auto) 8.7 H Eos % (Auto) 0.0 Baso % (Auto) 0.1 L Lymph # (Auto) 0.92 [place] # (Auto) 0.7 H Eos # (Auto) 0.0 Baso # (Auto) 0.0 Abs Immat Gran (auto) 0.02 Absolute Neuts (auto) 5.9 Absolute Nucleated RBC 0.000 Nucleated RBC % 0.0 % Immature Plt Fraction 1.8 Sodium 142 142 Potassium 3.4 3.0 L Chloride 109 H 107 Carbon Dioxide 26 28 Anion Gap 7 7 BUN 14 D 14 Creatinine 0.72 0.69 L Estim Creat Clear Calc 62 64 Estimated GFR > 60 > 60 Glucose 138 H 125 H Calcium 9.0 8.8 Magnesium 2.0 Total Bilirubin 1.3 0.8 AST 240 H 132 H ALT 175 H 161 H Alkaline Phosphatase 135 H 126 C-Reactive Protein < 0.5 Total Protein 7.0 6.0 L Albumin 4.0 3.8 Lipase 8949 H Quality VTE Prophylaxis VTE prophylaxis: mechanical ordered
[2024-11-01 20:00] VITALS: O2SAT 93
[2024-11-01 21:20] VITALS: BP 122/70; PULSE 68; RESP 16; TEMP 36.1; O2SAT 93
[2024-11-01] MEDS: HYDROmorphone HCL INJ (*CRX) 2 MG/ML VIAL 1 MG IV PUSH (21:59)
[2024-11-02 01:39] LABS: Hematocrit 34.4 % (37.0-47.0); Hemoglobin 11.6 g/dL (12.0-15.0); Mean Corpuscular HGB Conc 33.7 g/dl (32-36); Mean Corpuscular Hemoglobin 29.7 pg (26-34); Mean Platelet Volume 8.9 fl (7.4-10.4); Platelet Count Result 130 k/mm3 (150-375); Red Blood Count 3.91 M/mm3 (4.2-5.4); Red Cell Distribution Width 13.4 % (11.5-14.5); White Blood Count 8.1 K/mm3 (4.5-10.0)
[2024-11-02 01:46] LABS: Alanine Aminotransferase 133 U/L (6-35); Albumin Level 3.7 g/dL (3.5-5.1); Alkaline Phosphatase 116 U/L (38-126); Anion Gap 7 mmol/L (4-12); Aspartate Amino Transferase 76 U/L (14-36); Bilirubin,Total 0.8 mg/dL (0.2-1.3); Blood Urea Nitrogen 12 mg/dL (7-17); Calcium 8.7 mg/dL (8.4-10.2); Carbon Dioxide 25 mmol/L (22-30); Chloride 106 mmol/L (98-107); Estimated CRCL calculation 74 ml/min; Estimated Glomerular Filt Rate > 60; Glucose 105 mg/dL (65-110); Potassium 3.3 mmol/L (3.4-5.0); Sodium 138 mmol/L (137-145)
[2024-11-02 01:48] LABS: CRP 2.3 mg/dL (<1.0)
[2024-11-02] MEDS: LACTATED RINGERS 1,000 ML 100 ML IV CONT (04:25)
[2024-11-02 04:43] VITALS: BP 118/68; PULSE 83; RESP 18; TEMP 36.6; O2SAT 97
[2024-11-02 06:08] LABS: Basophils Percent Auto 0.1 % (0.2-1.2); Eosinophils Percent Auto 0.3 % (0-4.4); Hematocrit 34.7 % (37.0-47.0); Hemoglobin 11.5 g/dL (12.0-15.0); Immature Granulocyte Absolute 0.02 K/mm3 (0.00-0.031); Immature Granulocyte Percent A 0.2 % (0-0.5); Lymphocytes Absolute Auto 0.91 K/mm3 (0.9-3.2); Lymphocytes Percent Auto 10.5 % (18.3-44.2); Mean Corpuscular HGB Conc 33.1 g/dl (32-36); Mean Corpuscular Hemoglobin 29.5 pg (26-34); Mean Platelet Volume 9.4 fl (7.4-10.4); Monocytes Absolute Auto 0.5 K/mm3 (0.1-0.6); Monocytes Percent Auto 5.2 % (2.6-8.5); Neutrophils Absolute Auto 7.2 K/mm3 (1.3-6.7); Neutrophils Percent Auto 83.7 % (45.5-73.1); Platelet Count Result 140 k/mm3 (150-375); Red Cell Distribution Width 13.5 % (11.5-14.5); White Blood Count 8.6 K/mm3 (4.5-10.0)
[2024-11-02 06:20] LABS: Alanine Aminotransferase 125 U/L (6-35); Albumin Level 3.7 g/dL (3.5-5.1); Alkaline Phosphatase 118 U/L (38-126); Anion Gap 8 mmol/L (4-12); Aspartate Amino Transferase 62 U/L (14-36); Bilirubin,Total 0.9 mg/dL (0.2-1.3); Blood Urea Nitrogen 11 mg/dL (7-17); Calcium 8.7 mg/dL (8.4-10.2); Carbon Dioxide 24 mmol/L (22-30); Chloride 105 mmol/L (98-107); Estimated CRCL calculation 79 ml/min; Estimated Glomerular Filt Rate > 60; Glucose 94 mg/dL (65-110); Magnesium 1.9 mg/dL (1.6-2.3); Potassium 3.3 mmol/L (3.4-5.0); Sodium 137 mmol/L (137-145)
[2024-11-02 06:55] LABS: CRP 3.9 mg/dL (<1.0)
--- NOTE | 2024-11-02 07:01 | WPDGIPROGNO ---
Progress Note: A&P Assessment and Plan (1) Choledocholithiasis: Code(s): K80.50 - Calculus of bile duct without cholangitis or cholecystitis without obstruction Status: Acute (2) Post-ERCP acute pancreatitis: Code(s): K91.89 - Other postprocedural complications and disorders of digestive system; K85.90 - Acute pancreatitis without necrosis or infection, unspecified Status: Acute Assessment and Plan: The patient is clinically improving, and her hematocrit has remained stable, indicating no significant hemoconcentration. In the absence of abdominal pain, a full liquid diet will be started this morning with close monitoring. If she tolerates this, we plan to advance her to a soft diet, with a potential for discharge as early as tomorrow. Subjective Date/time seen: 11/02/24 07:01 Review of Systems Review of Systems: The patient feels less abdominal pain, requiring only 1 dose of analgesics in the past 12 hours. This morning she is pain-free. Exam Narrative: Abdomen: Soft, nontender, nondistended, no rebound. Rest of the examination with Objective Data Vital Signs Vital Signs: Vital Signs - 24 hr 11/01/24 08:59 11/01/24 14:00 11/01/24 20:00 Temperature 97.1 F L Pulse Rate 60 Respiratory Rate 14 Blood Pressure 127/68 Pulse Oximetry 98 94 Oxygen Delivery Room Air Room Air 11/01/24 20:00 11/01/24 21:20 11/02/24 04:43 Temperature 97.0 F L 97.8 F Pulse Rate 68 83 Respiratory Rate 16 18 Blood Pressure 122/70 118/68 Pulse Oximetry 93 93 97 Oxygen Delivery Room Air Intake/Output Intake/Output: Intake & Output 10/30/24 10/31/24 11/01/24 11/02/24 23:59 23:59 23:59 23:59 Intake Total 1480 1940.0 1550.0 1550 Balance 1480 1940.0 1550.0 1550 Meds/Results Medications: Active Medications Generic Name Dose Route Start Last Admin Trade Name Freq PRN Reason Stop Dose Admin Acetaminophen 650 mg 10/29/24 13:09 10/31/24 21:02 Acetaminophen 325 Mg Tablet PO 650 mg Q6H PRN Administration Mild Pain (1-3) or Fever Enoxaparin Sodium 40 mg 10/31/24 09:00 11/01/24 09:59 Enoxaparin 40 Mg/0.4 Ml Syringe SUB-Q 40 mg DAILY RUCHI Administration Hydromorphone HCl 1 mg 11/01/24 19:16 11/01/24 21:59 Hydromorphone Hcl Inj (*Crx) 2 Mg/Ml Vial IV PUSH 1 mg Q3H PRN Administration Pain Rated 7-10 Lactated Ringer's 1,000 mls @ 100 mls/hr 11/01/24 06:40 11/02/24 04:25 Lr - Lactated Ringers Iv IV CONT 100 mls/hr .Q10H RUCHI Administration Ondansetron HCl 4 mg 10/28/24 18:52 11/01/24 13:52 Ondansetron Inj 4 Mg/2 Ml Vial IV PUSH 4 mg Q4H PRN Administration Nausea Polyethylene Glycol 17 gm 10/29/24 14:15 Polyethylene Glycol 3350 17 Gm Powd.Pack PO DAILY PRN Constipation Radiology Results: ITS Impressions Abdomen/Pelvis CT 10/28/24 18:07 IMPRESSION: 1. Intrahepatic biliary dilatation with a slightly prominent pancreatic duct. Evaluation of the sphincter of Oddi is advised. 2. Constipation. MRCP 10/30/24 12:35 IMPRESSION: 1. Choledocholithiasis with likely at least partially obstructing 8 mm stone in the distal common bile duct with mild intra and extra hepatic biliary ductal dilation. Labs Labs: Laboratory Results - last 24 hr 11/01/24 11/01/24 11/02/24 06:39 14:31 01:30 WBC 8.4 8.1 RBC 3.97 L 3.91 L Hgb 12.0 11.6 L Hct 34.5 L 34.4 L MCV 86.9 88.0 MCH 30.2 29.7 MCHC 34.8 33.7 RDW 13.1 13.4 Plt Count 165 130 L MPV 9.1 8.9 Immature Gran % (Auto) Neut % (Auto) Lymph % (Auto) [place] % (Auto) Eos % (Auto) Baso % (Auto) Lymph # (Auto) [place] # (Auto) Eos # (Auto) Baso # (Auto) Abs Immat Gran (auto) Absolute Neuts (auto) Absolute Nucleated RBC Nucleated RBC % % Immature Plt Fraction 1.8 Sodium 142 138 Potassium 3.0 L 3.3 L Chloride 107 106 Carbon Dioxide 28 25 Anion Gap 7 7 BUN 14 12 Creatinine 0.69 L 0.59 L Estim Creat Clear Calc 64 74 Estimated GFR > 60 > 60 Glucose 125 H 105 Calcium 8.8 8.7 Magnesium Total Bilirubin 0.8 0.8 AST 132 H 76 H ALT 161 H 133 H Alkaline Phosphatase 126 116 C-Reactive Protein < 0.5 2.3 H Total Protein 6.0 L 6.0 L Albumin 3.8 3.7 Lipase 8949 H 11/02/24 11/02/24 05:26 05:31 WBC 8.6 RBC 3.90 L Hgb 11.5 L Hct 34.7 L MCV 89.0 MCH 29.5 MCHC 33.1 RDW 13.5 Plt Count 140 L MPV 9.4 Immature Gran % (Auto) 0.2 Neut % (Auto) 83.7 H Lymph % (Auto) 10.5 L [place] % (Auto) 5.2 Eos % (Auto) 0.3 Baso % (Auto) 0.1 L Lymph # (Auto) 0.91 [place] # (Auto) 0.5 Eos # (Auto) 0.0 Baso # (Auto) 0.0 Abs Immat Gran (auto) 0.02 Absolute Neuts (auto) 7.2 H Absolute Nucleated RBC 0.000 Nucleated RBC % 0.0 % Immature Plt Fraction Sodium 137 Potassium 3.3 L Chloride 105 Carbon Dioxide 24 Anion Gap 8 BUN 11 Creatinine 0.55 L Estim Creat Clear Calc 79 Estimated GFR > 60 Glucose 94 Calcium 8.7 Magnesium 1.9 Total Bilirubin 0.9 AST 62 H ALT 125 H Alkaline Phosphatase 118 C-Reactive Protein 3.9 H Total Protein 6.0 L Albumin 3.7 Lipase
[2024-11-02] MEDS: HYDROmorphone HCL INJ (*CRX) 2 MG/ML VIAL 1 MG IV PUSH (09:55)
[2024-11-02] MEDS: ENOXAPARIN 40 MG/0.4 ML SYRINGE SUB-Q (09:56)
--- NOTE | 2024-11-02 11:01 | P.PNIM_ITS ---
Progress Note: A&P Assessment and Plan (1) Intrahepatic bile duct dilation: Code(s): K83.8 - Other specified diseases of biliary tract Status: Acute Assessment and Plan: Hx Cholecystectomy Possibly multifactorial-retained stone versus narrowing of CBD/Sphincter of Oddi versus sludge S/p ERCP CT Abdomen/Pelvis:1. Intrahepatic biliary dilatation with a slightly prominent pancreatic duct. Evaluation of the sphincter of Oddi is advised. AST 234, ALT 208, today 62/125 Supportive care with pain control PRN pain control (2) Pancreatic duct dilated: Code(s): K86.89 - Other specified diseases of pancreas Status: Acute Assessment and Plan: S/p ERCP (3) Transaminitis: Code(s): R74.01 - Elevation of levels of liver transaminase levels Status: Acute Assessment and Plan: As above Plan Post-ERCP pancreatitis abd pain and tenderness present AST/ALT 240/175, then decreased to 62/125 Lipase 8949 Advance diet per GI, IVF GI following DVT prophylaxis on Sq Lovenox Subjective Date/time seen: 11/02/24 11:01 Interval history: Comfortable at bedside On Liquid diet today Review of Systems Review of Systems: 12 systems were reviewed and are negativ e except for as per HPI. Exam Narrative: General: Nontoxic-appearing female supine in bed in no acute distress. Weight: 72 kg. BMI: 31.0. HEENT: PERRL, EOMI. Sclera anicteric. Oral mucosa moist. Neck: Supple. Respiratory: Lungs are clear to auscultation bilaterally. Cardiovascular: Regular rate and rhythm with S1-S2. Gastrointestinal: Abdomen is soft, nontender, and nondistended with positive bowel sounds. (she did receive pain medications not long prior to my examination) Skin: Warm and dry. No rash or lesions on limited exam. Extremities: No cyanosis, clubbing, or edema. Radial and pedal pulses intact. Neurological: Alert. Cranial nerves 2-12 are grossly intact. No gross focal deficits to casual conversation. Psychiatric: Pleasant and cooperative with normal mood and affect. Judgment and insight intact. Objective Data Vital Signs Vital Signs: Vital Signs - 24 hr 11/01/24 14:00 11/01/24 20:00 11/01/24 20:00 Temperature 97.1 F L Pulse Rate 60 Respiratory Rate 14 Blood Pressure 127/68 Pulse Oximetry 94 93 Oxygen Delivery Room Air Room Air 11/01/24 21:20 11/02/24 04:43 Temperature 97.0 F L 97.8 F Pulse Rate 68 83 Respiratory Rate 16 18 Blood Pressure 122/70 118/68 Pulse Oximetry 93 97 Oxygen Delivery Intake/Output Intake/Output: Intake & Output 10/30/24 10/31/24 11/01/24 11/02/24 23:59 23:59 23:59 23:59 Intake Total 1480 1940.0 1550.0 2100 Balance 1480 1940.0 1550.0 2100 Meds/Results Medications: Active Medications Generic Name Dose Route Start Last Admin Trade Name Freq PRN Reason Stop Dose Admin Acetaminophen 650 mg 10/29/24 13:09 10/31/24 21:02 Acetaminophen 325 Mg Tablet PO 650 mg Q6H PRN Administration Mild Pain (1-3) or Fever Enoxaparin Sodium 40 mg 10/31/24 09:00 11/02/24 09:56 Enoxaparin 40 Mg/0.4 Ml Syringe SUB-Q 40 mg DAILY RUCHI Administration Hydromorphone HCl 1 mg 11/01/24 19:16 11/02/24 09:55 Hydromorphone Hcl Inj (*Crx) 2 Mg/Ml Vial IV PUSH 1 mg Q3H PRN Administration Pain Rated 7-10 Lactated Ringer's 1,000 mls @ 100 mls/hr 11/01/24 06:40 11/02/24 04:25 Lr - Lactated Ringers Iv IV CONT 100 mls/hr .Q10H RUCHI Administration Ondansetron HCl 4 mg 10/28/24 18:52 11/01/24 13:52 Ondansetron Inj 4 Mg/2 Ml Vial IV PUSH 4 mg Q4H PRN Administration Nausea Polyethylene Glycol 17 gm 10/29/24 14:15 Polyethylene Glycol 3350 17 Gm Powd.Pack PO DAILY PRN Constipation Radiology Results: ITS Impressions Abdomen/Pelvis CT 10/28/24 18:07 IMPRESSION: 1. Intrahepatic biliary dilatation with a slightly prominent pancreatic duct. Evaluation of the sphincter of Oddi is advised. 2. Constipation. MRCP 10/30/24 12:35 IMPRESSION: 1. Choledocholithiasis with likely at least partially obstructing 8 mm stone in the distal common bile duct with mild intra and extra hepatic biliary ductal dilation. Labs Labs: Laboratory Results - last 24 hr 11/01/24 11/02/24 11/02/24 14:31 01:30 05:26 WBC 8.4 8.1 RBC 3.97 L 3.91 L Hgb 12.0 11.6 L Hct 34.5 L 34.4 L MCV 86.9 88.0 MCH 30.2 29.7 MCHC 34.8 33.7 RDW 13.1 13.4 Plt Count 165 130 L MPV 9.1 8.9 Immature Gran % (Auto) Neut % (Auto) Lymph % (Auto) [place] % (Auto) Eos % (Auto) Baso % (Auto) Lymph # (Auto) [place] # (Auto) Eos # (Auto) Baso # (Auto) Abs Immat Gran (auto) Absolute Neuts (auto) Absolute Nucleated RBC Nucleated RBC % % Immature Plt Fraction 1.8 Sodium 142 138 Potassium 3.0 L 3.3 L Chloride 107 106 Carbon Dioxide 28 25 Anion Gap 7 7 BUN 14 12 Creatinine 0.69 L 0.59 L Estim Creat Clear Calc 64 74 Estimated GFR > 60 > 60 Glucose 125 H 105 Calcium 8.8 8.7 Magnesium Total Bilirubin 0.8 0.8 AST 132 H 76 H ALT 161 H 133 H Alkaline Phosphatase 126 116 C-Reactive Protein < 0.5 2.3 H 3.9 H Total Protein 6.0 L 6.0 L Albumin 3.8 3.7 11/02/24 05:31 WBC 8.6 RBC 3.90 L Hgb 11.5 L Hct 34.7 L MCV 89.0 MCH 29.5 MCHC 33.1 RDW 13.5 Plt Count 140 L MPV 9.4 Immature Gran % (Auto) 0.2 Neut % (Auto) 83.7 H Lymph % (Auto) 10.5 L [place] % (Auto) 5.2 Eos % (Auto) 0.3 Baso % (Auto) 0.1 L Lymph # (Auto) 0.91 [place] # (Auto) 0.5 Eos # (Auto) 0.0 Baso # (Auto) 0.0 Abs Immat Gran (auto) 0.02 Absolute Neuts (auto) 7.2 H Absolute Nucleated RBC 0.000 Nucleated RBC % 0.0 % Immature Plt Fraction Sodium 137 Potassium 3.3 L Chloride 105 Carbon Dioxide 24 Anion Gap 8 BUN 11 Creatinine 0.55 L Estim Creat Clear Calc 79 Estimated GFR > 60 Glucose 94 Calcium 8.7 Magnesium 1.9 Total Bilirubin 0.9 AST 62 H ALT 125 H Alkaline Phosphatase 118 C-Reactive Protein Total Protein 6.0 L Albumin 3.7 Quality VTE Prophylaxis VTE prophylaxis: mechanical ordered
[2024-11-02 14:00] VITALS: BP 111/91; PULSE 78; RESP 16; TEMP 36.8; O2SAT 100
[2024-11-02 19:56] VITALS: BP 128/77; PULSE 75; RESP 18; TEMP 37.4; O2SAT 96
[2024-11-03] MEDS: HYDROmorphone HCL INJ (*CRX) 2 MG/ML VIAL 1 MG IV PUSH ×2 (00:21→07:37)
[2024-11-03] MEDS: LACTATED RINGERS 1,000 ML 100 ML IV CONT (00:22)
[2024-11-03 04:54] VITALS: BP 123/69; PULSE 72; RESP 16; TEMP 37; O2SAT 98
[2024-11-03 06:02] LABS: Basophils Percent Auto 0.2 % (0.2-1.2); Eosinophils Absolute Auto 0.1 K/mm3 (0-0.3); Eosinophils Percent Auto 0.9 % (0-4.4); Hematocrit 32.7 % (37.0-47.0); Hemoglobin 11.2 g/dL (12.0-15.0); Immature Granulocyte Absolute 0.03 K/mm3 (0.00-0.031); Immature Granulocyte Percent A 0.4 % (0-0.5); Lymphocytes Absolute Auto 1.52 K/mm3 (0.9-3.2); Lymphocytes Percent Auto 17.9 % (18.3-44.2); Mean Corpuscular HGB Conc 34.3 g/dl (32-36); Mean Corpuscular Hemoglobin 29.7 pg (26-34); Mean Corpuscular Volume 86.7 fl (80-100); Mean Platelet Volume 9.4 fl (7.4-10.4); Monocytes Absolute Auto 0.7 K/mm3 (0.1-0.6); Monocytes Percent Auto 7.7 % (2.6-8.5); Neutrophils Absolute Auto 6.2 K/mm3 (1.3-6.7); Neutrophils Percent Auto 72.9 % (45.5-73.1); Platelet Count Result 129 k/mm3 (150-375); Red Blood Count 3.77 M/mm3 (4.2-5.4); Red Cell Distribution Width 12.8 % (11.5-14.5); White Blood Count 8.5 K/mm3 (4.5-10.0)
[2024-11-03 06:17] LABS: Alanine Aminotransferase 86 U/L (6-35); Albumin Level 3.5 g/dL (3.5-5.1); Alkaline Phosphatase 114 U/L (38-126); Anion Gap 6 mmol/L (4-12); Aspartate Amino Transferase 33 U/L (14-36); Bilirubin,Total 1.3 mg/dL (0.2-1.3); Blood Urea Nitrogen 7 mg/dL (7-17); Calcium 8.8 mg/dL (8.4-10.2); Carbon Dioxide 25 mmol/L (22-30); Chloride 104 mmol/L (98-107); Estimated CRCL calculation 83 ml/min; Estimated Glomerular Filt Rate > 60; Glucose 92 mg/dL (65-110); Magnesium 1.8 mg/dL (1.6-2.3); Potassium 3.1 mmol/L (3.4-5.0); Sodium 135 mmol/L (137-145)
[2024-11-03] MEDS: ONDANSETRON INJ 4 MG/2 ML VIAL IV PUSH (07:37)
--- NOTE | 2024-11-03 12:15 | P.PNGI_ITS ---
Progress Note: A&P Assessment and Plan (1) Choledocholithiasis: Code(s): K80.50 - Calculus of bile duct without cholangitis or cholecystitis without obstruction Status: Acute Assessment and Plan: ercp could not cannulate bile duct, PD stent was placed but still had pancreatitis however is mild and now pain is gone liver enzymes improved she is tolerating diet attempt another ERCP but wait at least 2-3 weeks until pancreatitis is fully resolved, Dr Shen placed a referral to [facility] discharge home soon (2) Post-ERCP acute pancreatitis: Code(s): K91.89 - Other postprocedural complications and disorders of digestive system; K85.90 - Acute pancreatitis without necrosis or infection, unspecified Status: Acute Assessment and Plan: clinically improved no more pain (3) Transaminitis: Code(s): R74.01 - Elevation of levels of liver transaminase levels Status: Acute Assessment and Plan: from choledocholithiasis no more pain (4) Epigastric pain: Code(s): R10.13 - Epigastric pain Status: Acute Subjective Date/time seen: 11/03/24 12:15 Interval history: tolerating diet no more abdominal pain, no nausea Review of Systems Review of Systems: All systems reviewed & are unremarkable except as noted in HPI and below Exam Const: General: comfortable and no acute distress HENMT: Face/Nose/Sinus: Normal nares present Eyes: General: appearance normal, both eyes and all related structures Neck: Neck: supple Resp: Auscultation: clear to auscultation bilaterally Cardio: Rate: regular rate Rhythm: regular rhythm GI: Inspection: non-distended GI Palp: Yes Soft to palpation and No Tenderness to palpation present (GI) Auscultation: normal bowel sounds Skin: General skin exam: normal color Neuro: Speech: normal speech Motor exam (neuro): 5/5 motor strength present throughout Extrem: General: normal to inspection Psych: Mental Status: mental status grossly normal Objective Data Vital Signs Vital Signs: Vital Signs - 24 hr 11/02/24 14:00 11/02/24 19:56 11/02/24 20:00 Temperature 98.2 F 99.3 F Pulse Rate 78 75 Respiratory Rate 16 18 Blood Pressure 111/91 H 128/77 Pulse Oximetry 100 96 Oxygen Delivery Room Air 11/03/24 04:54 Temperature 98.6 F Pulse Rate 72 Respiratory Rate 16 Blood Pressure 123/69 Pulse Oximetry 98 Oxygen Delivery Intake/Output Intake/Output: Intake & Output 10/31/24 11/01/24 11/02/24 11/03/24 23:59 23:59 23:59 23:59 Intake Total 1940.0 1550.0 3580 790 Balance 1940.0 1550.0 3580 790 Meds/Results Medications: Active Medications Generic Name Dose Route Start Last Admin Trade Name Freq PRN Reason Stop Dose Admin Acetaminophen 650 mg 10/29/24 13:09 10/31/24 21:02 Acetaminophen 325 Mg Tablet PO 650 mg Q6H PRN Administration Mild Pain (1-3) or Fever Enoxaparin Sodium 40 mg 10/31/24 09:00 11/03/24 09:42 Enoxaparin 40 Mg/0.4 Ml Syringe SUB-Q Not Given DAILY RUCHI Hydromorphone HCl 1 mg 11/01/24 19:16 11/03/24 07:37 Hydromorphone Hcl Inj (*Crx) 2 Mg/Ml Vial IV PUSH 1 mg Q3H PRN Administration Pain Rated 7-10 Lactated Ringer's 1,000 mls @ 100 mls/hr 11/01/24 06:40 11/03/24 00:22 Lr - Lactated Ringers Iv IV CONT 100 mls/hr .Q10H RUCHI Administration Ondansetron HCl 4 mg 10/28/24 18:52 11/03/24 07:37 Ondansetron Inj 4 Mg/2 Ml Vial IV PUSH 4 mg Q4H PRN Administration Nausea Polyethylene Glycol 17 gm 10/29/24 14:15 Polyethylene Glycol 3350 17 Gm Powd.Pack PO DAILY PRN Constipation Radiology Results: ITS Impressions Abdomen/Pelvis CT 10/28/24 18:07 IMPRESSION: 1. Intrahepatic biliary dilatation with a slightly prominent pancreatic duct. Evaluation of the sphincter of Oddi is advised. 2. Constipation. MRCP 10/30/24 12:35 IMPRESSION: 1. Choledocholithiasis with likely at least partially obstructing 8 mm stone in the distal common bile duct with mild intra and extra hepatic biliary ductal dilation. Labs Labs: Laboratory Results - last 24 hr 11/03/24 05:29 WBC 8.5 RBC 3.77 L Hgb 11.2 L Hct 32.7 L MCV 86.7 MCH 29.7 MCHC 34.3 RDW 12.8 Plt Count 129 L MPV 9.4 Immature Gran % (Auto) 0.4 Neut % (Auto) 72.9 Lymph % (Auto) 17.9 L [place] % (Auto) 7.7 Eos % (Auto) 0.9 Baso % (Auto) 0.2 Lymph # (Auto) 1.52 [place] # (Auto) 0.7 H Eos # (Auto) 0.1 Baso # (Auto) 0.0 Abs Immat Gran (auto) 0.03 Absolute Neuts (auto) 6.2 Absolute Nucleated RBC 0.000 Nucleated RBC % 0.0 Sodium 135 L Potassium 3.1 L Chloride 104 Carbon Dioxide 25 Anion Gap 6 BUN 7 Creatinine 0.53 L Estim Creat Clear Calc 83 Estimated GFR > 60 Glucose 92 Calcium 8.8 Magnesium 1.8 Total Bilirubin 1.3 AST 33 ALT 86 H Alkaline Phosphatase 114 Total Protein 6.0 L Albumin 3.5
--- NOTE | 2024-11-03 13:54 | P.DS_ITS ---
DS: Admitting Diagnosis Discharge Date 11/03/24 Admitting Diagnosis Abd pain DS: Discharge Diagnosis Discharge Diagnosis (1) Post-ERCP acute pancreatitis: Code(s): K91.89 - Other postprocedural complications and disorders of digestive system; K85.90 - Acute pancreatitis without necrosis or infection, unspecified Status: Acute (2) Choledocholithiasis: Code(s): K80.50 - Calculus of bile duct without cholangitis or cholecystitis without obstruction Status: Acute (3) Transaminitis: Code(s): R74.01 - Elevation of levels of liver transaminase levels Status: Acute DS: Summary Hospital Course Hospital Course: This is a 58-year-old female with history of cholecystectomy who presented to the emergency department via private vehicle from home with complaints of abdominal pain. She is primarily Turkish-speaking and a video translation service was used to obtain the following history. She felt fine when she got up this morning. For lunch she had pasta salad and macaroni and cheese and not long thereafter she developed nonradiating sharp pain in the epigastric region associated with nausea and vomiting x2. The symptoms were similar to though she experienced before she had her gallbladder taken out. With further questioning she reports that over the last 1 week she has had similar symptoms albeit to a lesser degree and she has been taking [id number] medication though she is unable to tell me the name of that medication. She denies fever, chills, sweats, hematemesis, bloating, belching, diarrhea, melena, hematochezia, provide S, and jaundice. In the ED: Vital signs were stable on arrival. Labs were significant for a WBC count of 8.2, total bilirubin 0.3, AST 129, ALT 56, alkaline phosphatase 116, lipase 187. CT of the abdomen and pelvis showed intrahepatic biliary dilatation with a slightly prominent peripancreatic duct and findings of constipation. She received a L of lactated Ringer's, hydromorphone 0.5 mg, and ondansetron 4 mg. She is being admitted in this setting for symptom management and GI consultation. Time Spent with Patient Time attestation: Total time spent providing and/or coordinating discharge services: DS: Data Data Completed and Pending Labs on day of discharge: Labs from last 24 hours 11/03/24 05:29 WBC 8.5 RBC 3.77 L Hgb 11.2 L Hct 32.7 L MCV 86.7 MCH 29.7 MCHC 34.3 RDW 12.8 Plt Count 129 L MPV 9.4 Immature Gran % (Auto) 0.4 Neut % (Auto) 72.9 Lymph % (Auto) 17.9 L [place] % (Auto) 7.7 Eos % (Auto) 0.9 Baso % (Auto) 0.2 Lymph # (Auto) 1.52 [place] # (Auto) 0.7 H Eos # (Auto) 0.1 Baso # (Auto) 0.0 Abs Immat Gran (auto) 0.03 Absolute Neuts (auto) 6.2 Absolute Nucleated RBC 0.000 Nucleated RBC % 0.0 Sodium 135 L Potassium 3.1 L Chloride 104 Carbon Dioxide 25 Anion Gap 6 BUN 7 Creatinine 0.53 L Estim Creat Clear Calc 83 Estimated GFR > 60 Glucose 92 Calcium 8.8 Magnesium 1.8 Total Bilirubin 1.3 AST 33 ALT 86 H Alkaline Phosphatase 114 Total Protein 6.0 L Albumin 3.5 Discharge Plan Discharge Attending physician on discharge: Mandy Kothari Consulting providers: Adair Shen Discharging Clinician: Mandy Kothari Anticipated Discharge Date/Time: 11/03/24 13:41 Patient Disposition: Home Activity: as tolerated Diet: as tolerated and regular Patient Instructions: Antibiotic Form Patient Language: Romansh Stand Alone Forms: General Discharge Information Follow-up/Referrals: PHYSICIAN,PLATFORM ARCHITECT [Primary Care Provider] - (F/u with PCP in 3-5 days ) Adair Shen MD [Physician] - (F/u with GI as instructed ) Discharge Medications: New hydrocodone-acetaminophen 5-325 mg tablet 1 tablet PO Q6H PRN (Reason: pain) 5 Days Qty: 5 0RF Date of admission: 10/29/24 13:22 Primary Care Provider: PHYSICIAN,PLATFORM ARCHITECT Admitting Provider: Luke Garcia Attending physician on admission: Mandy Kothari Condition: Stable
[2024-11-03 14:00] VITALS: BP 117/63; PULSE 99; RESP 18; TEMP 36.8; O2SAT 96
--- NOTE | 2024-11-03 14:01 | PM.DS ---
DS: Admitting Diagnosis Discharge Date 11/03/24 Admitting Diagnosis Abdominal pain. DS: Discharge Diagnosis Discharge Diagnosis (1) Transaminitis: Code(s): R74.01 - Elevation of levels of liver transaminase levels Status: Acute (2) Post-ERCP acute pancreatitis: Code(s): K91.89 - Other postprocedural complications and disorders of digestive system; K85.90 - Acute pancreatitis without necrosis or infection, unspecified Status: Acute (3) Choledocholithiasis: Code(s): K80.50 - Calculus of bile duct without cholangitis or cholecystitis without obstruction Status: Acute DS: Summary Hospital Course Hospital Course: 58-year-old female with history of cholecystectomy who presented to the emergency department via private vehicle from home with complaints of abdominal pain. She is primarily [place]-speaking and a video translation service was used to obtain the following history. She felt fine when she got up this morning. For lunch she had pasta salad and macaroni and cheese and not long thereafter she developed nonradiating sharp pain in the epigastric region associated with nausea and vomiting x2. The symptoms were similar to though she experienced before she had her gallbladder taken out. With further questioning she reports that over the last 1 week she has had similar symptoms albeit to a lesser degree and she has been taking [id number] medication though she is unable to tell me the name of that medication. She denies fever, chills, sweats, hematemesis, bloating, belching, diarrhea, melena, hematochezia, provide S, and jaundice. In the ED: Vital signs were stable on arrival. Labs were significant for a WBC count of 8.2, total bilirubin 0.3, AST 129, ALT 56, alkaline phosphatase 116, lipase 187. CT of the abdomen and pelvis showed intrahepatic biliary dilatation with a slightly prominent peripancreatic duct and findings of constipation. She received a L of lactated Ringer's, hydromorphone 0.5 mg, and ondansetron 4 mg. She is being admitted in this setting for symptom management and GI consultation. Patient underwent ERCP however failed cannulation of CBD, PD stent was placed. Patient had post ERCP pancreatitis, supportive care was instituted and this morning she noted no pain and tolerating diet. Discharged on 5 tabs of [place] 5/325 PRN for pain control. Liver enzymes resolved and patinet will follow up with GI as instructed for repeat ERCP. F/u with PCP in 3-5 days F/u with GI as instructed Time Spent with Patient Time attestation: Total time spent providing and/or coordinating discharge services: DS: Data Data Completed and Pending Labs on day of discharge: Labs from last 24 hours 11/03/24 05:29 WBC 8.5 RBC 3.77 L Hgb 11.2 L Hct 32.7 L MCV 86.7 MCH 29.7 MCHC 34.3 RDW 12.8 Plt Count 129 L MPV 9.4 Immature Gran % (Auto) 0.4 Neut % (Auto) 72.9 Lymph % (Auto) 17.9 L Baker % (Auto) 7.7 Eos % (Auto) 0.9 Baso % (Auto) 0.2 Lymph # (Auto) 1.52 Baker # (Auto) 0.7 H Eos # (Auto) 0.1 Baso # (Auto) 0.0 Abs Immat Gran (auto) 0.03 Absolute Neuts (auto) 6.2 Absolute Nucleated RBC 0.000 Nucleated RBC % 0.0 Sodium 135 L Potassium 3.1 L Chloride 104 Carbon Dioxide 25 Anion Gap 6 BUN 7 Creatinine 0.53 L Estim Creat Clear Calc 83 Estimated GFR > 60 Glucose 92 Calcium 8.8 Magnesium 1.8 Total Bilirubin 1.3 AST 33 ALT 86 H Alkaline Phosphatase 114 Total Protein 6.0 L Albumin 3.5 Discharge Plan Discharge Attending physician on discharge: Mandy Kothari Consulting providers: Adair Shen Discharging Clinician: Mandy Kothari Anticipated Discharge Date/Time: 11/03/24 13:41 Patient Disposition: Home Activity: as tolerated Diet: as tolerated and regular Patient Instructions: Antibiotic Form Patient Language: Croatian Stand Alone Forms: General Discharge Information Follow-up/Referrals: PHYSICIAN,[employer]ACHINE OPERATOR [Primary Care Provider] - (F/u with PCP in 3-5 days ) Adair Shen MD [Physician] - (F/u with GI as instructed ) Discharge Medications: New hydrocodone-acetaminophen 5-325 mg tablet 1 tablet PO Q6H PRN (Reason: pain) 5 Days Qty: 5 0RF Date of admission: 10/29/24 13:22 Primary Care Provider: PHYSICIAN,[employer] MOVING MACHINE OPERATOR Admitting Provider: Luke Garcia Attending physician on admission: Mandy Kothari Condition: Stable
== END 2024-11-03 16:05 | disposition home or self-care (01) ==
LOC: ANHED 18:52 → ANH3MEDSUR 19:45
PROVIDERS: Internal Medicine Gastroenterology; Physician Assistant; Admitting Provider General Practice; Emergency Provider Emergency Medicine; Visit Provider Internal Medicine
PROC: 0F7D8DZ Dilation of Pancreatic Duct with Intraluminal Device, Via Natural or Artificial Opening Endoscopic (ICD-10-PCS; CPT 43260; principal; 2024-10-31 11:30)
DX: K80.50 Calculus of bile duct without cholangitis or cholecystitis without obstruction (principal); K83.8 Other specified diseases of biliary tract; K86.89 Other specified diseases of pancreas; K91.89 Other postprocedural complications and disorders of digestive system; K85.80 Other acute pancreatitis without necrosis or infection
CPT/HCPCS: 36415; 74177; 74183; 74329; 76376; 80053; 81001; 81025; 83605; 83690; 83735; 85025; 85027; 85055; 85610; 85730; 86140; 87086; 93005; 96361; 96374; 96375; 96376; 99285; A9270; A9577; C2625; G0378; J0330; J1100; J1171; J1650; J2003; J2405; J2704; J7120; Q9966; Q9967